=== PATIENT | male | born 1945 | race Caucasian/White ===

== ENCOUNTER 2018-06-22 21:40 | Inpatient (IN) | payer MEDICARE, SELFPAY ==
[2018-06-22] VITALS (32 sets, daily range): BP systolic 145–198; BP diastolic 72–104; PULSE 68–138; RESP 4–36; TEMP 36.5; O2SAT 93–100
--- NOTE | 2018-06-22 21:56 | W.ED.GENAD ---
Discharge Plan Disposition Patient Disposition: [facility] INPATIENT Condition: Improving Discharge Details Chief Complaint: SOB Clinical Impression: CHF (congestive heart failure), COPD (chronic obstructive pulmonary disease) Reason For Visit: COPD EXACERBATION Admit Date/Time: 06/23/18 00:45 Admit Provider: Don Ggae Attending Provider: Don Gage Primary Care Provider: [place] ED Provider: Joseph Salter Discharge Data Discharge Date/Time-TO BE ENTERED AT DEPARTURE: 06/23/18 01:52 Medical Decision Making 22:00 --patient seen immediately on arrival. Patient in critical condition on arrival. 73-year-old male with history of right-sided lung cancer status post lobectomy 5 years ago, now with recurrence recently diagnosed left lung, diabetes, hypertension, here with shortness of breath, respiratory distress improving with noninvasive positive pressure ventilation. Bilateral lower extremity edema noted with calf tenderness on the left. Patient is tachycardic, tachypneic, and hypertensive. Broad differential at this point. Consider acute pulmonary embolism. Consider acute CHF. Consider COPD exacerbation. Consider worsening tumor burden. ECG reviewed and interpreted by me: Sinus tachycardia 131 bpm, short HI with HI interval of 112, occasional PVCs, ST depressions are noted V3 to V5. Will check trop and BNP. Will transition CPAP to BIPAP. Respiratory therapy consulted. Plan to CT chest. 22:39 -- Patient reassessed: RT at bedside. Patient much improved. Trialing off bipap. Still wheezing - continue nebs. Labs reviewed: mild elevation of troponin noted. BNP mildly elevated. Creatinine nl. Will process to CT chest. -- Patient has tiny amount of dark bloody sputum in mouth - gastroccult positive. Troponin mildly elevated. Will repeat now and repeat ecg. 23:20 -- CT of the chest interpreted by radiology: No obvious pulmonary embolism. There is limited visualization of the segmental in the bases secondary to breathing motion degradation. Right lower pleural space has chronic thickening with calcification. This also has some parenchymal scar in the right base. Patient reassessed: saturating 94% on RA, off bipap. Continues to have wheeze. RT to restart bipap. -- Discussion with patient and : patient is DNR/DNI. 00:00 -- Labs review and repeat troponin at 1.5 hr trending up at 0.09. repeat ecg reviewed and interpreted by me (under wrong patient [id number]): Sinus tachycardia 123 bpm with frequent PVCs, unchanged nonspecific ST depression noted in V3, not present in V4 or V5. Suspect demand ischemia. Old ecg not available for comparison. Patient hypertensive: 164/88. Will start low dose nitroglycerin infusion. Will give prescribed dose of metoprolol which he typically takes at night. Plan to admit. Spoke with hospitalist Dr. Lee and discussed presentation, ED course, diagnostics, and current assessment. Patient to be admitted by Dr. Gage to the ICU. Care transitioned to Dr. Gage. 1:24 -- Repeat ecg reviewed and interpreted by me: Sinus tachycardia 132 bpm, PACs and PVCs present, continues to have ST depression V3-v5. Ecg reviewed with Dr. Gage who agrees with read and he was able to compare to prior remote ecg which he notes had similar depressions. HPI General Mode of arrival: EMS. Date/Time Provider Initiated Documentation: 06/22/18 21:54. Information obtained by: patient, family and EMS. HPI Narrative: 73-year-old male with history of lung cancer status post right lobectomy 5 years ago, now with recently diagnosed recurrence in the left lung, here with chief complaint of shortness of breath. History and review of systems is limited secondary to acuity of condition and noninvasive positive pressure ventilation. History obtained from EMS and who notes that patient has had recent respiratory illness over the past 1 week with intermittent wheezing that responded to albuterol neb treatments. Today around noon, he went outside and was in the cold and developed worsening shortness of breath and wheezing. He has been using his albuterol neb treatments today without relief. Symptoms progressive and more severe tonight. Also notes bilateral lower extremity swelling that is intermittent and worse recently. Patient denies associated chest pain. EMS arrived to find the patient anxious, tachypneic, tachycardic and hypoxic. CPAP was initiated and patient has significantly improved in route to [facility]. Related Data Home Medications Medication Instructions Recorded Confirmed albuterol sulfate 2 puff INHALATION Q6H PRN 06/22/18 06/22/18 allopurinol 300 mg PO DAILY 06/22/18 06/22/18 amlodipine 10 mg PO DAILY 06/22/18 06/22/18 hydrochlorothiazide 25 mg PO DAILY 06/22/18 06/23/18 losartan 100 mg PO DAILY 06/22/18 06/23/18 metformin 1,000 mg PO DAILY 06/22/18 06/22/18 metoprolol succinate 12.5 mg PO DAILY 06/22/18 06/23/18 tiotropium bromide [Spiriva with 1 cap INHALATION DAILY 06/22/18 06/22/18 HandiHaler] isosorbide mononitrate 30 mg PO DAILY 06/23/18 06/23/18 apixaban [Eliquis] 10 mg PO BID #70 tab 06/27/18 levofloxacin 750 mg PO QPM #3 tab 06/27/18 omeprazole 40 mg PO DAILY #30 cap 06/27/18 prednisone 10 mg PO DAILY #44 tab 06/27/18 tamsulosin 0.4 mg PO DAILY #30 cap 06/27/18 Previous Rx's Medication Instructions Recorded apixaban [Eliquis] 10 mg PO BID #70 tab 06/27/18 levofloxacin 750 mg PO QPM #3 tab 06/27/18 omeprazole 40 mg PO DAILY #30 cap 06/27/18 prednisone 10 mg PO DAILY #44 tab 06/27/18 tamsulosin 0.4 mg PO DAILY #30 cap 06/27/18 Allergies Allergy/AdvReac Type Severity Reaction Status Date / Time No Known Allergies Allergy Unverified 06/22/18 22:14 Review of Systems Review of Systems Unobtainable due to (limited 2/2 cpap and acuity) Cardiovascular Reports as per HPI Respiratory Reports as per HPI [facility] Medical History DVT (deep venous thrombosis) (Acute) COPD exacerbation (Acute) Type 2 diabetes mellitus (Chronic) Essential hypertension (Chronic) COPD (chronic obstructive pulmonary disease) (Chronic) Lung cancer (Chronic) Social History Smoking/Tobacco Use Status: Current every day tobacco type: e-cigarettes Surgical History S/P lobectomy of lung (Resolved) Status post ORIF of fracture of ankle (Resolved) Exam Const General: cooperative and acute distress respiratory HENMT Head: normocephalic and atraumatic Mouth: moist mucous membranes Eyes Conjunctivae: normal conjunctivae Sclera: normal sclerae EOM: EOM intact bilaterally Neck Neck: trachea midline and supple Resp Auscultation: diminished lung sounds on the right, no rales, no rhonchi and wheezes expiratory wheezes (thoughout) Cardio Jugular venous pressure: no JVD Rate: tachycardic Rhythm: regular rhythm GI Palpation: soft, not firm, no guarding, no masses, not rigid and nontender Skin General skin exam: no rashes or lesions noted Neuro General: alert, awake, oriented x3 and tone normal Extrem General: calf tenderness on the left and edema Laterality: bilateral Psych Appearance: grossly normal Mental Status: mental status grossly normal Critical Care Time Critical Care Time: Yes Total Critical Care Time: 65 Attestation: I spent greater than 65 minutes addressing this patient's immediate life threats.
[2018-06-22] MEDS: methylPREDNISolone SUCC 125 MG VIAL IVP (22:01)
[2018-06-22] MEDS: Albuterol/Ipratropium 3 ML UPD VIAL UPD (22:01)
[2018-06-22 22:05] LABS: Abs Immature Grans 0.01 k/cumm (0.0-0.09); Absolute Basophil Count 0.09 k/cumm (0.0-0.2); Absolute Eosinophil Count 0.49 k/cumm (0.0-0.7); Absolute Lymphocyte Count 2.14 k/cumm (1.2-3.4); Absolute Monocyte Count 0.86 k/cumm (0.11-0.7); Absolute Neutrophil Count 4.03 k/cumm (1.2-6.7); Basophils % 1.2; Eosinophils % 6.4; HCT 48.3 % (40.0-50.0); HGB 16.3 g/dL (13.5-17.5); Immature Grans % 0.1; Lymphocytes % 28.1; Mean Corp. HGB Concentration 33.7 g/dL (32.0-36.0); Mean Corpuscular Hemoglobin 31.8 pg (27.0-33.0); Mean Corpuscular Volume 94.2 fL (80-95); Mean Platelet Volume 11.2 fL (8.0-11.0); Monocytes % 11.3; Neutrophils % 52.9; Platelet Count 223 x1000/uL (130-400); RBC 5.13 m/cumm (4.50-6.00); RBC Distribution Width 13.1 % (11.8-14.1); White Blood Cell Count 7.62 k/cumm (4.4-10.8)
--- NOTE | 2018-06-22 22:08 | ED.GENADUL_ITS ---
Discharge Plan Disposition Patient Disposition: [facility] INPATIENT Condition: Improving Discharge Details Chief Complaint: SOB Clinical Impression: CHF (congestive heart failure), COPD (chronic obstructive pulmonary disease) Reason For Visit: COPD EXACERBATION Admit Date/Time: 06/23/18 00:45 Admit Provider: Don Gage Attending Provider: Don Gage Primary Care Provider: [place] ED Provider: Joseph Salter Discharge Data Discharge Date/Time-TO BE ENTERED AT DEPARTURE: 06/23/18 01:52 Medical Decision Making 22:00 --patient seen immediately on arrival. Patient in critical condition on arrival. 73-year-old male with history of right-sided lung cancer status post lobectomy 5 years ago, now with recurrence recently diagnosed left lung, diabetes, hypertension, here with shortness of breath, respiratory distress improving with noninvasive positive pressure ventilation. Bilateral lower extremity edema noted with calf tenderness on the left. Patient is tachycardic, tachypneic, and hypertensive. Broad differential at this point. Consider acute pulmonary embolism. Consider acute CHF. Consider COPD exacerbation. Consider worsening tumor burden. ECG reviewed and interpreted by me: Sinus tachycardia 131 bpm, short PA with PA interval of 112, occasional PVCs, ST depressions are noted V3 to V5. Will check trop and BNP. Will transition CPAP to BIPAP. Respiratory therapy consulted. Plan to CT chest. 22:39 -- Patient reassessed: RT at bedside. Patient much improved. Trialing off bipap. Still wheezing - continue nebs. Labs reviewed: mild elevation of troponin noted. BNP mildly elevated. Creatinine nl. Will process to CT chest. -- Patient has tiny amount of dark bloody sputum in mouth - gastroccult positive. Troponin mildly elevated. Will repeat now and repeat ecg. 23:20 -- CT of the chest interpreted by radiology: No obvious pulmonary embolism. There is limited visualization of the segmental in the bases secondary to breathing motion degradation. Right lower pleural space has chronic thickening with calcification. This also has some parenchymal scar in the right base. Patient reassessed: saturating 94% on RA, off bipap. Continues to have wheeze. RT to restart bipap. -- Discussion with patient and : patient is DNR/DNI. 00:00 -- Labs review and repeat troponin at 1.5 hr trending up at 0.09. repeat ecg reviewed and interpreted by me (under wrong patient [id number]): Sinus tachycardia 123 bpm with frequent PVCs, unchanged nonspecific ST depression noted in V3, not present in V4 or V5. Suspect demand ischemia. Old ecg not available for comparison. Patient hypertensive: 164/88. Will start low dose nitroglycerin infusion. Will give prescribed dose of metoprolol which he typically takes at night. Plan to admit. Spoke with hospitalist Dr. Lee and discussed presentation, ED course, diagnostics, and current assessment. Patient to be admitted by Dr. Gage to the ICU. Care transitioned to Dr. Gage. 1:24 -- Repeat ecg reviewed and interpreted by me: Sinus tachycardia 132 bpm, PACs and PVCs present, continues to have ST depression V3-v5. Ecg reviewed with Dr. Gage who agrees with read and he was able to compare to prior remote ecg which he notes had similar depressions. HPI General Mode of arrival: EMS . Date/Time Provider Initiated Documentation: 06/22/18 21:54 . Information obtained by: patient, family and EMS . HPI Narrative: 73-year-old male with history of lung cancer status post right lobectomy 5 years ago, now with recently diagnosed recurrence in the left lung, here with chief complaint of shortness of breath. History and review of systems is limited secondary to acuity of condition and noninvasive positive pressure ventilation. History obtained from EMS and who notes that patient has had recent respiratory illness over the past 1 week with intermittent wheezing that responded to albuterol neb treatments. Today around noon, he went outside and was in the cold and developed worsening shortness of breath and wheezing. He has been using his albuterol neb treatments today without relief. Symptoms progressive and more severe tonight. Also notes bilateral lower extremity swelling that is intermittent and worse recently. Patient denies associated chest pain. EMS arrived to find the patient anxious, tachypneic, tachycardic and hypoxic. CPAP was initiated and patient has significantly improved in route to [facility]. Related Data Home Medications Medication Instructions Recorded Confirmed albuterol sulfate 2 puff INHALATION Q6H PRN 06/22/18 06/22/18 allopurinol 300 mg PO DAILY 06/22/18 06/22/18 amlodipine 10 mg PO DAILY 06/22/18 06/22/18 hydrochlorothiazide 25 mg PO DAILY 06/22/18 06/23/18 losartan 100 mg PO DAILY 06/22/18 06/23/18 metformin 1,000 mg PO DAILY 06/22/18 06/22/18 metoprolol succinate 12.5 mg PO DAILY 06/22/18 06/23/18 tiotropium bromide [Spiriva with 1 cap INHALATION DAILY 06/22/18 06/22/18 HandiHaler] isosorbide mononitrate 30 mg PO DAILY 06/23/18 06/23/18 apixaban [Eliquis] 10 mg PO BID #70 tab 06/27/18 levofloxacin 750 mg PO QPM #3 tab 06/27/18 omeprazole 40 mg PO DAILY #30 cap 06/27/18 prednisone 10 mg PO DAILY #44 tab 06/27/18 tamsulosin 0.4 mg PO DAILY #30 cap 06/27/18 Previous Rx's Medication Instructions Recorded apixaban [Eliquis] 10 mg PO BID #70 tab 06/27/18 levofloxacin 750 mg PO QPM #3 tab 06/27/18 omeprazole 40 mg PO DAILY #30 cap 06/27/18 prednisone 10 mg PO DAILY #44 tab 06/27/18 tamsulosin 0.4 mg PO DAILY #30 cap 06/27/18 Allergies Allergy/AdvReac Type Severity Reaction Status Date / Time No Known Allergies Allergy Unverified 06/22/18 22:14 Review of Systems Review of Systems Unobtainable due to (limited 2/2 cpap and acuity) Cardiovascular Reports as per HPI Respiratory Reports as per HPI [facility] Medical History DVT (deep venous thrombosis) (Acute) COPD exacerbation (Acute) Type 2 diabetes mellitus (Chronic) Essential hypertension (Chronic) COPD (chronic obstructive pulmonary disease) (Chronic) Lung cancer (Chronic) Social History Smoking/Tobacco Use Status: Current every day tobacco type: e-cigarettes Surgical History S/P lobectomy of lung (Resolved) Status post ORIF of fracture of ankle (Resolved) Exam Const General: cooperative and acute distress respiratory HENMT Head: normocephalic and atraumatic Mouth: moist mucous membranes Eyes Conjunctivae: normal conjunctivae Sclera: normal sclerae EOM: EOM intact bilaterally Neck Neck: trachea midline and supple Resp Auscultation: diminished lung sounds on the right, no rales, no rhonchi and wheezes expiratory wheezes (thoughout) Cardio Jugular venous pressure: no JVD Rate: tachycardic Rhythm: regular rhythm GI Palpation: soft, not firm, no guarding, no masses, not rigid and nontender Skin General skin exam: no rashes or lesions noted Neuro General: alert, awake, oriented x3 and tone normal Extrem General: calf tenderness on the left and edema Laterality: bilateral Psych Appearance: grossly normal Mental Status: mental status grossly normal Critical Care Time Critical Care Time: Yes Total Critical Care Time: 65 Attestation: I spent greater than 65 minutes addressing this patient's immediate life threats.
[2018-06-22 22:23] LABS: ALT 34 U/L (12-78); AST 26 U/L (15-37); Albumin 3.9 g/dL (3.4-5.0); Alkaline Phosphatase 137 U/L (46-116); Anion Gap 12.6 mmol/L (3-11); BUN 9 mg/dL (7-18); Bilirubin, Total 0.4 mg/dL (0.2-1.0); CO2 28.4 mmol/L (21.0-32.0); CREATININE 1.08 mg/dL (0.70-1.30); Calcium 9.2 mg/dL (8.5-10.1); Chloride 102 mmol/L (98-107); Glucose 174 mg/dL (70-100); Magnesium 1.7 mg/dL (1.8-2.4); NT-proBNP 771 pg/mL; Potassium 3.8 mmol/L (3.5-5.1); Sodium 143 mmol/L (136-145); Total Protein 7.8 g/dL (6.4-8.2)
[2018-06-22 22:24] LABS: BE (Venous) 2.3 mmol/L (-3-3); HCO3 (Venous) 28 mmol/L (22-28); O2 Sat (Venous) 91 % (70-80); TCO2 (Venous) 24 mmol/L (22-29); pCO2 (Venous) 47 mm/Hg (34-47); pH (Venous) 7.38 (7.32-7.43); pO2 (Venous) 61 mm/Hg (28-44)
[2018-06-22 22:30] LABS: Troponin I 0.07 ng/mL (0.00-0.06)
[2018-06-22] MEDS: Albuterol/Ipratropium 3 ML UPD VIAL (22:34)
--- NOTE | 2018-06-22 22:37 | DI.CT_ITS ---
SYMPTOM/DIAGNOSIS: SHORTNESS OF BREATH, LUNG CANCER, TACHY, HEMOPTYSIS CT ANGIOGRAPHY CHEST: 06/22/18 CT angiography of the chest was performed with intravenous infusion of 100 cc Omnipaque 350. Note is made of vertebral body fusion of the thoracic spine with flowing osteophytes consistent with DISH. There is moderate motion artifact on this study which limits interpretation. No evidence of pulmonary embolic disease. No thoracic aortic dissection or aneurysm. Moderate atheromatous calcification of the aorta noted. Images obtained through the upper abdomen show grossly unremarkable appearance of visualized portions of liver, spleen, pancreas, adrenals and kidneys. No evidence of mediastinal mass or adenopathy. There is diffuse central lobular emphysema. There is peribronchial thickening particularly centrally. There are areas of apparent linear pleural and pulmonary scarring with some calcified pleural plaque in the right lung base. CONCLUSION: No evidence of pulmonary embolic disease. Right lung base partially calcified pleural/parenchymal calcification. Marked central lobular emphysema.
[2018-06-22] MEDS: Omnipaque 350 MG/ML 100 ML BTL IJ (23:02)
--- NOTE | 2018-06-22 23:14 | DI.VRAD_ITS ---
EXAM: CT Angiography Chest With Intravenous Contrast EXAM DATE/TIME: 06/22/2018 10:39 PM CLINICAL HISTORY: 73 years old, male; Signs and symptoms; Shortness of breath; Patient HX: SOB, lung CA, tachy, hemoptysis TECHNIQUE: Axial computed tomographic angiography images of the chest with intravenous contrast using CT angiography protocol. All CT scans at this facility use at least one of these dose optimization techniques: automated exposure control; mA and/or kV adjustment per patient size (includes targeted exams where dose is matched to clinical indication); or iterative reconstruction. Coronal and sagittal reformatted images were created and reviewed. MIP reconstructed images were created and reviewed. CONTRAST: 100 ml of Omnipaque 350 administered intravenously. COMPARISON: CR CHEST 2 VIEWS PA,LAT 06/26/2011 6:54 AM FINDINGS: Pulmonary arteries: Normal. No pulmonary emboli. Aorta: Normal. No aortic aneurysm. No aortic dissection. Lungs: Mild centrilobular destruction of lung parenchyma. There is some parenchymal scarring the right lung base. Pleural space: Right lower pleural space there is pleural thickening which looks chronic with calcification. Heart: Normal. No cardiomegaly. No pericardial effusion. Bones/joints: Unremarkable. No acute fracture. Soft tissues: Unremarkable. Lymph nodes: Unremarkable. No enlarged lymph nodes. Other findings: Breathing motion degradation of image quality through the lung bases. IMPRESSION: 1. No obvious pulmonary emboli. There is limited visualization of the segmental vessels in the bases secondary to breathing motion degradation. 2. Right lower pleural space has chronic thickening with calcification. This also some parenchymal scar in the right base. Dictated and Authenticated by: Pramod Stewart MD. Ordering:ALTAGRACIA IRIZARRY MD
--- NOTE | 2018-06-22 23:15 | NUR.NOTE ---
Nursing Note: Pt was reported to have spit up something black and sticky- gastrocult done and was positive. Dr. Salter aware
[2018-06-22 23:46] LABS: Troponin I 0.09 ng/mL (0.00-0.06)
[2018-06-23] VITALS (127 sets, daily range): BP systolic 118–185; BP diastolic 68–161; PULSE 65–145; RESP 4–50; TEMP 36.8–37.5; O2SAT 80–99
[2018-06-23] MEDS: Metoprolol 25 MG TAB PO (00:49)
--- NOTE | 2018-06-23 00:55 | W.PM.HP.N ---
Date of service: 06/23/18 Time of Service: 00:56 Assessment and Plan (1) COPD exacerbation: Current visit: Yes Status: Acute continue iv corticosteroids, bronchodilators; cont. BIPAP for respiratory support; obtain sputum culture given his hemoptysis (however this may reflect his CA rather than infection as he has no leukocytosis and no fever and no infiltrates on CT scan); I holding off antibiotics for now as we have no evidence for infection (2) Essential hypertension: Current visit: Yes Status: Chronic he presented w/ severe hypertension; this may be exacerbated by his acute dyspnea or may be a primary problem for his acute dyspnea causing him tachycardia and elevated troponins; patient was started on NTG drip in the ER for CHF but this has helped to bring down his BP. I will continue the NTG drip for now and resume his home bp meds (amlodipine, HCTZ, losartan) and increase his home metoprolol. He can be weaned off the NTG in the a.m. (3) Elevated troponin I level: Current visit: Yes Status: Acute no sx of CP and his non-specific diffuse ST changes appear to be old, nevertheless his troponin remains elevated although not diagnostic for SC. I will continue to trend this and continue his NTG and other bp meds. check echo in a.m. to assess LV function (4) Congestive heart failure: Current visit: Yes Status: Ruled-out he has had no hx of CHF and denies any hx fo SC. However his pedal edema has been coming on for about 1 month along with his worsening dyspnea. His BNP is modestly elevated at 700 which could also reflect PHTN. I have ordered one time dose of lasix and have left him on his iv NTG for now. Will check echo in the a.m. Continue to monitor serial troponin levels. Repeat BNP should be obtained prior to discharge once his hemodynamics have been opitimized (i.e. once his HTN is under control and he is no longer tachycardic) (5) Lung cancer: Current visit: Yes Status: Chronic I will ask nursing [facility] to find out whether or not he truly has recurrent lung CA and what their plans for treatment include (6) Type 2 diabetes mellitus: Current visit: Yes Status: Chronic hold metformin in light of CHF and recent iv contrast for CTA. use insulin sliding scale along w/ CHO coverage History of Present Illness Chief Complaint: dyspnea Narrative: 73-year-old former smoker with a history of COPD and lung cancer status post right lobectomy reportedly with a recurrence involving the left side who also has a history of essential hypertension and type 2 diabetes mellitus. He has had increased exertional dyspnea and bilateral leg edema for the past month. He has had worsening dyspnea at rest over the last 2 days along with a small amount of hemoptysis today. Denies any chest pain or fever or chills or rigors. Upon evaluation in the emergency room he was found to be tachypneic and tachycardic and hypertensive. On arrival his heart rate was 138 bpm, sinus tachycardia. Blood pressure was elevated 198/104 and his respiration rate was 28. When the EMS arrived to his home he was in respiratory distress was placed on CPAP mask. Workup in the emergency room included routine labs including CBC, CMP, serial troponin levels, proBNP, venous blood gas as well as chest CT scan to rule out PE. CBC was unremarkable. CMP demonstrated elevated glucose 174 and a low magnesium 1.7 and an elevated alkaline phosphatase of 137. Troponin level was mildly elevated at 0.07 with a follow-up level an hour and half later of 0.09. ProBNP was elevated at 771. Venous blood gas demonstrated a low PO2 of 61 with a normal PCO2 of 47. CT scan of the chest with contrast showed no obvious pulmonary emboli however there was limited visualization of the segmental vessels in the bases secondary to breathing motion artifact. Right lower lobe pleural space had chronic thickening with calcifications and parenchymal scarring in the right base. Heart showed no cardiomegaly and no pericardial effusion. There is no lymphadenopathy and no aneurysm. ECG demonstrates sinus tachycardia with frequent PACs and occasional PVC. There is nonspecific diffuse ST depression across the precordial leads similar to previous ECGs from 2011. Treatment in the emergency room included IV Solu-Medrol 125 mg along with DuoNeb aerosol treatments. His breathing is has improved and he was temporarily weaned off of BiPAP to nasal cannula but after attempting to get up to void he became very dyspneic and required resumption of his BiPAP. Patient was started on IV nitroglycerin drip by Dr. Joseph Salter to treat the patient's hypertension and CHF. Patient is now admitted to the intensive care unit for treatment of COPD exacerbation and possible CHF. Review of Systems Constitutional Denies chills, Denies fever(s) and Denies weight gain Eyes Reports system reviewed and no additional complaints, except as docu ENT Reports system reviewed and no additional complaints, except as docu Cardiovascular Denies chest pain, Reports rapid heart rate, Reports pedal edema, Reports leg edema, Reports dyspnea and Reports dyspnea on exertion Respiratory Reports cough, Reports hemoptysis, Reports dyspnea and Reports dyspnea on exertion Gastrointestinal Reports system reviewed and no additional complaints, except as docu Genitourinary Reports system reviewed and no additional complaints, except as docu Musculoskeletal Reports system reviewed and no additional complaints, except as docu Integumentary/Breasts Reports system reviewed and no additional complaints, except as docu Neurologic Reports system reviewed and no additional complaints, except as docu Psychiatric Reports system reviewed and no additional complaints, except as docu Endocrine Reports system reviewed and no additional complaints, except as docu PFSH Medical History DVT (deep venous thrombosis) (Acute) Type 2 diabetes mellitus (Chronic) Essential hypertension (Chronic) COPD (chronic obstructive pulmonary disease) (Chronic) Lung cancer (Chronic) Social History Smoking/Tobacco Use Status: Current every day tobacco type: e-cigarettes Surgical History S/P lobectomy of lung (Resolved) Status post ORIF of fracture of ankle (Resolved) Meds Home Medications Medication Instructions Recorded Confirmed Type albuterol sulfate 2 puff INHALATION Q6H PRN 06/22/18 06/22/18 History allopurinol 300 mg PO DAILY 06/22/18 06/22/18 History amlodipine 10 mg PO DAILY 06/22/18 06/22/18 History hydrochlorothiazide 25 mg PO DAILY 06/22/18 06/23/18 History losartan 100 mg PO DAILY 06/22/18 06/23/18 History metformin 1,000 mg PO DAILY 06/22/18 06/22/18 History metoprolol succinate 12.5 mg PO DAILY 06/22/18 06/23/18 History tiotropium bromide [Spiriva with 1 cap INHALATION DAILY 06/22/18 06/22/18 History HandiHaler] isosorbide mononitrate 30 mg PO DAILY 06/23/18 06/23/18 History Allergies Allergy/AdvReac Type Severity Reaction Status Date / Time No Known Allergies Allergy Unverified 06/22/18 22:14 Exam Const General: cooperative and no acute distress (Earlier in the evening the patient was in respiratory extremis requiring BiPAP) Nutritional Appearance: obese morbidly obese Orientation: alert, awake and oriented x3 HENMT Head: normal to inspection, no palpable skull fracture, normocephalic, atraumatic and no acral cyanosis General nose exam: external nose normal Face and sinus: normal facial exam Eyes General: appearance normal, both eyes and all related structures Alignment and Position: alignment normal and position normal Periorbital: periorbital findings normal Eyelids: eyelids normal Conjunctivae: conjunctivae normal Sclera: sclerae normal Cornea: corneas normal Pupils: PERRL EOM: EOM intact bilaterally Resp Effort & Inspection: able to speak in complete sentences Auscultation: crackles, rales bilaterally at the base and wheezes expiratory wheezes and scattered wheezes Cardio Jugular venous pressure: no JVD Rate: tachycardic Rhythm: regular rhythm Heart Sounds: no gallops and no murmurs Bruits: no abdominal aortic bruits and no carotid bruits Pulses: normal peripheral pulses GI Inspection: normal to inspection Back/Spine/Pelvis Back: no CVA tenderness Cervical Spine: normal cervical lordosis Thoracic/Lumbar Spine: thoracic and lumbar spine normal to inspection Skin General skin exam: no rashes or lesions noted Neuro General: alert, awake, oriented x3, moves all extremities, normal light touch, pain and propioception and no focal motor deficits Cranial Nerves: PERRL, EOM intact bilaterally, no nystagmus, facial strength normal, hearing normal, able to rotate head bilaterally and able to elevate shoulders bilaterally Cognition: normal cognition Speech: speech normal Motor: muscle tone normal throughout, strength 5/5 throughout and no movement abnormalities noted Sensory Exam: no sensory deficits noted Extrem General: normal to inspection, full ROM, normal capillary refill, no cyanosis and pedal edema bilaterally Psych Appearance: grossly normal Mental Status: mental status grossly normal Speech and Movement: speech and movement normal Mood: congruent mood Affect: normal affect Attitude: cooperative Thought Process: normal Thought Content: normal Insight: insight good Judgment: judgment good Results Imaging CT scan - chest: report reviewed (IMPRESSION: 1. No obvious pulmonary emboli. There is limited visualization of the segmental vessels in the bases secondary to breathing motion degradation. 2. Right lower pleural space has chronic thickening with calcification. This also some parenchymal scar in the right base. Dictated and Au) EKG: image reviewed (sinus tachycardia with PAC's and PVC, incomplete RBBB, diffuse non-specific ST depression (similar to prior EKG from 2010)) Labs : 06/23/18 06:15 06/25/18 07:00 Laboratory Results - last 24 hr 06/22/18 06/22/18 06/22/18 21:45 21:45 22:18 WBC 7.62 RBC 5.13 Hgb 16.3 Hct 48.3 MCV 94.2 MCH 31.8 MCHC 33.7 RDW 13.1 Plt Count 223 MPV 11.2 H Immature Gran % 0.1 Neutrophils % 52.9 Lymphocytes % 28.1 Monocytes % 11.3 Eosinophils % 6.4 Basophils % 1.2 Absolute Neutrophils 4.03 Absolute Lymphocytes 2.14 Absolute Monocytes 0.86 H Absolute Eosinophils 0.49 Absolute Basophils 0.09 VBG pH 7.38 VBG pCO2 47 VBG pO2 61 H VBG HCO3 28 VBG Total CO2 24 VBG O2 Saturation 91 H VBG Base Excess 2.3 Sodium 143 Potassium 3.8 Chloride 102 Carbon Dioxide 28.4 Anion Gap 12.6 H BUN 9 Creatinine 1.08 Estimated GFR/1.73 m2 >= 60.00 Glucose 174 H Calcium 9.2 Magnesium 1.7 L Total Bilirubin 0.4 AST 26 ALT 34 Alkaline Phosphatase 137 H Troponin I 0.07 H NT-Pro-B Natriuret Pep 771 H Total Protein 7.8 Albumin 3.9 06/22/18 23:25 WBC RBC Hgb Hct MCV MCH MCHC RDW Plt Count MPV Immature Gran % Neutrophils % Lymphocytes % Monocytes % Eosinophils % Basophils % Absolute Neutrophils Absolute Lymphocytes Absolute Monocytes Absolute Eosinophils Absolute Basophils VBG pH VBG pCO2 VBG pO2 VBG HCO3 VBG Total CO2 VBG O2 Saturation VBG Base Excess Sodium Potassium Chloride Carbon Dioxide Anion Gap BUN Creatinine Estimated GFR/1.73 m2 Glucose Calcium Magnesium Total Bilirubin AST ALT Alkaline Phosphatase Troponin I 0.09 H NT-Pro-B Natriuret Pep Total Protein Albumin Last Vital Signs Temp 36.5 C 06/22/18 21:49 Pulse 126 H 06/23/18 00:32 Resp 21 06/23/18 00:32 BP 165/95 H 06/23/18 00:32 Pulse Ox 93 L 06/23/18 00:32
[2018-06-23] MEDS: Furosemide 20 MG/2 ML VIAL IVP (02:46)
[2018-06-23] MEDS: Normal Saline Flush 10 ML SYR IVP ×3 (02:48→21:46)
[2018-06-23] MEDS: Enoxaparin 40 MG/0.4 ML SYR SC (02:48)
[2018-06-23] MEDS: methylPREDNISolone SUCC 125 MG VIAL 80 MG IVP ×3 (05:14→21:43)
[2018-06-23 07:20] LABS: Abs Immature Grans 0.01 k/cumm (0.0-0.09); Absolute Basophil Count 0.01 k/cumm (0.0-0.2); Absolute Eosinophil Count 0.01 k/cumm (0.0-0.7); Absolute Lymphocyte Count 0.48 k/cumm (1.2-3.4); Absolute Monocyte Count 0.04 k/cumm (0.11-0.7); Absolute Neutrophil Count 3.96 k/cumm (1.2-6.7); Basophils % 0.2; Eosinophils % 0.2; HCT 44.3 % (40.0-50.0); Immature Grans % 0.2; Lymphocytes % 10.6; Mean Corp. HGB Concentration 33.9 g/dL (32.0-36.0); Mean Corpuscular Hemoglobin 31.6 pg (27.0-33.0); Mean Corpuscular Volume 93.5 fL (80-95); Mean Platelet Volume 11.5 fL (8.0-11.0); Monocytes % 0.9; Neutrophils % 87.9; Platelet Count 210 x1000/uL (130-400); RBC 4.74 m/cumm (4.50-6.00); White Blood Cell Count 4.51 k/cumm (4.4-10.8)
[2018-06-23 07:28] LABS: Anion Gap 10.8 mmol/L (3-11); BUN 11 mg/dL (7-18); CO2 28.2 mmol/L (21.0-32.0); CREATININE 1.01 mg/dL (0.70-1.30); Calcium 9.2 mg/dL (8.5-10.1); Chloride 99 mmol/L (98-107); Glucose 253 mg/dL (70-100); Potassium 3.8 mmol/L (3.5-5.1); Sodium 138 mmol/L (136-145); TSH 0.62 uIU/mL (0.358-3.74)
[2018-06-23] MEDS: Albuterol/Ipratropium 3 ML UPD VIAL UPD (07:37)
--- NOTE | 2018-06-23 07:40 | PHARADMIT ---
Addendum entered by Vicky Dallas 06/25/18 14:23: Pharmacy Note Subjective still has some wheezes per morning report Objective BP-149/83 HR-107 other VS okay FSBG-266 Assessment apixaban dose increased from 5 to 10 mg BID (evidence of RLE DVT per progress note) methylprednisolone changed to prednisone Plan continue to watch VS, labs and for med changes Original Note: Admission Pharmacy Clinical Review COPD EXACERBATION Code Status DNR/DNI Current Weight Wgt- 76 kg Renally Cleared and Narrow Therapeutic Index Meds CrCl~ 59 mL/min Meds-OK QTc Value / Action Taken QTc-530 meds-OK BP Control, Fever BP- 134/83 Electrolytes reviewed Na- 138 K+3.8 Mag-1.7 DVT Prophylaxis Lovenox 40mg Opiate Usage / Scheduled Bowel Regimen Ordered No Yes Plt/SCr for Heparin / Enoxaparin Plts-21 SCr-1.01 INR for Warfarin na H/H stable, WBC/Bands H&H- 15.0/44.3 WBC- 4.51 Antibiotic appropriateness none Cultures and Sensitivities none Surgical ABX d/c within 24 hr NA DM control / Insulin Dosing BG-253 Aspart, Heart Failure (Check EF%) (ADIEL's, B-Block, Diuretics) Norvasc, HCTZ, Losartan, Toprol-XL, NTG- Drip, IV to PO Switch No Home Meds Reviewed Yes Home Meds Not Ordered Imdur, Metformin, Comments Troponin- 0.07 ^ 0.09 ^ 0.10
[2018-06-23] MEDS: Insulin Aspart 300 UNITS/3 ML PEN SC ×6 (08:32→17:56)
[2018-06-23] MEDS: Magnesium Gluconate 500 MG TAB PO ×2 (08:36→19:32)
[2018-06-23] MEDS: Metoprolol CR 25 MG TABCR 50 MG PO (08:36)
[2018-06-23] MEDS: Losartan 25 MG TAB PO (08:36)
[2018-06-23] MEDS: Allopurinol 300 MG TAB PO (08:36)
[2018-06-23] MEDS: amLODIPine 10 MG TAB PO (08:37)
--- NOTE | 2018-06-23 08:50 | DI.US_ITS ---
SYMPTOM/DIAGNOSIS: B/L LOWER EXTREMITY EDEMA, CALF PAIN DUPLEX VENOUS ULTRASOUND BOTH LOWER EXTREMITIES: 06/23/18 Duplex evaluation of the deep venous systems of both lower extremities was performed according to the usual protocol. No DVT identified on the left. In the common femoral vein on the right there is focal echogenic nonocclusive thrombus. The fairly high echogenicity would raise the possibility that this is chronic thrombus. No previous examinations available for comparison. CONCLUSION: 1. Negative left lower extremity DVT ultrasound 2. Right lower extremity DVT ultrasound shows non occlusive common femoral vein thrombus, chronic vs acute.
--- NOTE | 2018-06-23 08:50 | MERGE_ITS ---
*[facility]* *[facility]* [address] [place] [address] Date of study: 06/23/2018 Transthoracic Echocardiography M-mode, complete 2D, complete spectral Doppler, and color Doppler *STUDY CONCLUSIONS* Summary: 1. Left ventricle: The cavity size was normal. Systolic function was normal. The estimated ejection fraction was 55-60%. Mild hypokinesis of the basalinferolateral myocardium. Diastolic parameters were normal for age. There was no evidence of elevated ventricular filling pressure by Doppler parameters. 2. Mitral valve: There was mild regurgitation. 3. Right ventricle: The cavity size was normal. Wall thickness was normal. Systolic function was normal. 4. Atrial septum: No defect or patent foramen ovale was identified. 5. Pulmonary arteries: Systolic pressure could not be accurately estimated. 6. Inferior vena cava: The vessel was patent and normal in size. The respirophasic diameter changes were in the normal range (greater than or equal to 50%), consistent with normal central venous pressure. *PATIENT PRESENTATION* Height: 167.6cm ((66in) ) S/D Pressure: 153 / 22 Weight: 76.2kg ((167.6lb) ) BSA: 1.9m^2 Test start time: 08:55 AM. Test stop time: 09:30 AM. PERFORMING Unknown PERFORMING [facility] ORDERING Ismael Gage REFERRING Ismael Gage AUTOMOTIVE TECHNICIAN RT Arti (R)(CT), STEPHANIE *PROCEDURE DATA* Procedure information: The patient was identified by two identifiers. This study was interpreted by [facility]. Pertinent images and digital data are archived for permanent storage and are available for subsequent review. No prior study was available for comparison. Study status: Routine. Transthoracic echocardiography. M-mode, complete 2D, complete spectral Doppler, and color Doppler. A Transthoracic Echocardiogram was performed. Scanning was performed from the parasternal, apical, subcostal, and suprasternal notch acoustic windows. Images were obtained using an [id number] cardiac ultrasound machine. Image quality was adequate. Study completion: The patient tolerated the procedure well. History: PMH: Dyspnea. *CARDIAC ANATOMY* Left ventricle: The cavity size was normal. Systolic function was normal. The estimated ejection fraction was 55-60%. Regional wall motion abnormalities: Mild hypokinesis of the basalinferolateral myocardium. The tissue Doppler parameters were abnormal. Diastolic parameters were normal for age. There was no evidence of elevated ventricular filling pressure by Doppler parameters. Aortic valve: Doppler: There was no stenosis. There was no significant regurgitation. VTI ratio of LVOT to aortic valve: 0.83. Valve area (VTI): 2.4cm^2. Indexed valve area (VTI): 1.3cm^2/m^2. Peak velocity ratio of LVOT to aortic valve: 0.65. Valve area (Vmax): 1.9cm^2. Indexed valve area (Vmax): 1cm^2/m^2. Mean velocity ratio of LVOT to aortic valve: 0.63. Valve area (Vmean): 1.8cm^2. Indexed valve area (Vmean): 0.9cm^2/m^2. Mean gradient (S): 4.5mm Hg. Peak gradient (S): 6.9mm Hg. Aorta: Aortic root: The aortic root was normal in size. Mitral valve: Doppler: There was no evidence for stenosis. There was mild regurgitation. Left atrium: The atrium was normal in size. Atrial septum: No defect or patent foramen ovale was identified. Right ventricle: The cavity size was normal. Wall thickness was normal. Systolic function was normal. Pulmonic valve: Poorly visualized. Tricuspid valve: Doppler: There was no significant regurgitation. Pulmonary artery: Poorly visualized. Systolic pressure could not be accurately estimated. Right atrium: The atrium was normal in size. Pericardium: There was no pericardial effusion. Systemic veins: Inferior vena cava: Well visualized. The vessel was patent and normal in size. The respirophasic diameter changes were in the normal range (greater than or equal to 50%), consistent with normal central venous pressure. Measurements Left ventricle Value Reference LV ID, ED, PLAX 4.5 cm 3.5 - 6.0 LV ID, ES, PLAX 3.2 cm 2.1 - 4.0 LV end-diastolic volume, 1-p A2C 112 ml LV ejection fraction, 1-p A2C 47 % LV end-diastolic volume, 1-p A4C 68 ml LV ejection fraction, 1-p A4C 55 % LV e', lateral 0.068 m/sec LV E/e', lateral 7 LV e', medial 0.051 m/sec LV E/e', medial 10 LV e', average 0.059 m/sec LV E/e', average 8 LVOT Value Reference LVOT ID, A-P 1.9 cm LVOT area 2.9 cm^2 LVOT peak velocity, S 0.85 m/sec LVOT mean velocity, S 0.64 m/sec LVOT VTI, S 19.2 cm LVOT peak gradient, S 2.9 mm Hg LVOT mean gradient, S 1.8 mm Hg Stroke volume (SV), LVOT DP 55 ml Stroke index (SV/bsa), LVOT DP 29 ml/m^2 Aortic valve Value Reference Aortic valve peak velocity, S 1.3 m/sec Aortic valve mean velocity, S 1.02 m/sec Aortic valve VTI, S 23.0 cm Aortic mean gradient, S 4.5 mm Hg Aortic peak gradient, S 6.9 mm Hg VTI ratio, LVOT/AV 0.83 Aortic valve area, VTI 2.4 cm^2 Velocity ratio, peak, LVOT/AV 0.65 Aortic valve area, peak velocity 1.9 cm^2 Velocity ratio, mean, LVOT/AV 0.63 Aortic valve area, mean velocity 1.8 cm^2 Aortic valve area/bsa, mean velocity 0.9 cm^2/m^2 Aorta Value Reference Aortic root ID, ED 2.7 cm Left atrium Value Reference LA ID, A-P, ES 2.7 cm LA ID/bsa, A-P 1.4 cm/m^2 <=2.2 LA area, ES, A4C 17.9 cm^2 8.8 - 23.4 LA area, ES, A2C 15 cm^2 LA volume/bsa, ES, 1-p A4C 25 ml/m^2 LA volume, ES, 2-p 39 ml LA volume/bsa, ES, 2-p 21 ml/m^2 LA/aortic root ratio 1 Mitral valve Value Reference Mitral E-wave peak velocity 0.5 m/sec Mitral A-wave peak velocity 1.21 m/sec Mitral E/A ratio, peak 0.41 Right atrium Value Reference RA area, ES, A4C 13.7 cm^2 8.3 - 19.5 Legend: (L) and (H) frederick values outside specified reference range. I have personally reviewed the images and have reviewed and edited the reported findings. Electronically signed by Melvin Rdz MD 06/23/2018 13:08
--- NOTE | 2018-06-23 09:57 | PDOC.CMIN ---
- If Service Date Differs Date of service: 06/23/18 Time of Service: 09:57 Care Management Initial Assess REASON FOR HOSPITALIZATION:: COPD PAST MEDICAL HISTORY/PAST SURGICAL HISTORY:: COPD, essential hypertension, lung cancer, type 2 diabetes. Surgical history lobectomy of lung, ORIF. PREVIOUS FUNCTIONAL STATUS/SOCIAL/FAMILY SUPPORTS:: Parker lives with his spouse in [place], [place]. He states he is independent with ADL's and transportation. He is retierd and a [place]. He receives his care through the [facility]. He is not services connected however does meet with PCP, GI and pulmonogist at the [facility]. is his pulmonary provider. Parker has 3 children one lives local. He states his spouse is his primary support. CURRENT FUNCTIONAL STATUS:: Parker is currently in bed in the ICU he is currently on a bipap. He appears to have difficulty speaking full sentences. He states he does not have any equipment at home or services. He is unable to engage in conversation due to his resp status. CM contacted the CT and obtained the last visit note from , sheep killer. ADVANCE DIRECTIVES:: None on file CM confirmed with CT no advance there as well. CM will offer to complete while inpatient. Has patient been provided with information about the portal?: Yes Did the patient sign up for the portal?: No CODE STATUS:: Full Code INSURANCE COVERAGE / FINANCIAL ISSUES:: Medicare and bcbs CURRENT HOME/COMMUNITY SERVICES/EQUIPMENT:: PCP [facility], including sheep killer and GI specialist PRIMARY CARE PHYSICIAN:: PCP Dr. Rodrigues at the [facility] POTENTIAL DISCHARGE NEEDS:: Follow-up appointment scheduled with primary care at [facility] prior to discharge, scheduled appointment with sheep killer Dr. Fong PATIENT/FAMILY EDUCATION NEEDS:: Discharge education, limitations, follow-up plan of care, ask me 3 education and self-management. ANTICIPATED BARRIERS TO DISCHARGE:: None identified at this time TRANSPORTATION:: Via private car with spouse at time of discharge PLAN:: Parker is being cared for in the ICU, he will be discharged when medically cleared by provider. He will have an echocardiogram today, he is on IV steroids and and nitro for his blood pressure. He is currently receiving treatment with BiPAP and oxygen nasal cannula. CM contacted CT to obtain sheep killer notes from last visit. CM to continue to provide support, to patient, family, care team discharge planning and disposition.
[2018-06-23] MEDS: Magnesium Oxide 400 MG TAB 800 MG PO (10:09)
[2018-06-23] MEDS: Potassium Chloride 20 MEQ TABCR PO (10:09)
--- NOTE | 2018-06-23 10:30 | INITIAL_ITS ---
- If Service Date Differs Date of service: 06/23/18 Time of Service: 09:57 Care Management Initial Assess REASON FOR HOSPITALIZATION:: COPD PAST MEDICAL HISTORY/PAST SURGICAL HISTORY:: COPD, essential hypertension, lung cancer, type 2 diabetes. Surgical history lobectomy of lung, ORIF. PREVIOUS FUNCTIONAL STATUS/SOCIAL/FAMILY SUPPORTS:: Parker lives with his spouse in [place], [place]. He states he is independent with ADL's and transportation. He is retierd and a [place]. He receives his care through the [place]. He is not services connected however does meet with PCP, GI and pulmonogist at the [place]. is his pulmonary provider. Parker has 3 children one lives local. He states his spouse is his primary support. CURRENT FUNCTIONAL STATUS:: Parker is currently in bed in the ICU he is currently on a bipap. He appears to have difficulty speaking full sentences. He states he does not have any equipment at home or services. He is unable to engage in conversation due to his resp status. CM contacted the [place] and obtained the last visit note from , carpet cleaning technician. ADVANCE DIRECTIVES:: None on file CM confirmed with [place] no advance there as well. CM will offer to complete while inpatient. Has patient been provided with information about the portal?: Yes Did the patient sign up for the portal?: No CODE STATUS:: Full Code INSURANCE COVERAGE / FINANCIAL ISSUES:: Medicare and bcbs CURRENT HOME/COMMUNITY SERVICES/EQUIPMENT:: PCP [place], including carpet cleaning technician and GI specialist PRIMARY CARE PHYSICIAN:: PCP Dr. Rodrigues at the [place] POTENTIAL DISCHARGE NEEDS:: Follow-up appointment scheduled with primary care at [facility] prior to discharge, scheduled appointment with carpet cleaning technician Dr. Fong PATIENT/FAMILY EDUCATION NEEDS:: Discharge education, limitations, follow-up plan of care, ask me 3 education and self-management. ANTICIPATED BARRIERS TO DISCHARGE:: None identified at this time TRANSPORTATION:: Via private car with spouse at time of discharge PLAN:: Parker is being cared for in the ICU, he will be discharged when medically cleared by provider. He will have an echocardiogram today, he is on IV steroids and and nitro for his blood pressure. He is currently receiving treatment with BiPAP and oxygen nasal cannula. CM contacted [place] to obtain carpet cleaning technician notes from last visit. CM to continue to provide support, to patient, family, care team discharge planning and disposition.
[2018-06-23] MEDS: Albuterol 2.5 MG/3 ML INH SOLN VIAL UPD ×2 (11:16→13:58)
--- NOTE | 2018-06-23 12:16 | PGE_ITS ---
Date of Service Date of service: 06/24/18 Time of Service: 10:56 Assessment and Plan (1) COPD exacerbation: Current visit: Yes Status: Acute Ongoing for approximately 2 weeks and slowly worsening. No evidence of infectious pathology by imaging or history, and rapid influenza negative. Continue but wean IV Steroids. Continue bronchodilators. Obtain Sputum Culture in case symptoms indicate a bacterial bronchitis picture - Continue to hold on antibiotic therapy. (2) DVT (deep venous thrombosis): Current visit: Yes Status: Acute Evidence of a RLE DVT in setting of edema and calf pain - No evidence of PE by CT Scan that was somewhat limited. Initiated anticoagulation with Apixaban - Monitor symptoms closely. Of note Mr. Randle does have a history of prior malignancy with NSCLCa s/p resection in 2011. He does have a pulmonary nodule apparently under observation currently, but recurrence is not definitive. Will treat with Apixaban as above. (3) Essential hypertension: Current visit: Yes Status: Chronic Initial presentation with severe hypertension likely on the basis of respiratory distress and hypoxia. Patient was resumed on his home regimen with Nitro gtt discontinued. Blood Pressures appears vastly improved. Continue CCB, thiazide, and ARB. Patient also on BB. Doses confirmed with spouse and changed to match home regimen. (4) Elevated troponin I level: Current visit: Yes Status: Acute In setting of hypertension and hypoxia, likely reflects demand ischemia. Troponin elevation was minimal and equivocal (Peak of 0.10), downtrended with treatment of blood pressure and COPD exacerbation. ECHO checked and does indicate potential mild baslinferolateral hypokinesis, but with an intact LVEF. Will recommend stress test, potentially as an outpatient, once acute illness is over. (5) Lung cancer: Current visit: Yes Status: Chronic NSCLCa s/p right sided partial lobectomy in 2011, with discover of a new nodule on the left that has shown minimal growth over time, currently under observation with plans for repeat CT in July. Current CT Scan without mention of significant mass lesion or lymphadenopathy. Follows at the [facility]. (6) Type 2 diabetes mellitus: Current visit: Yes Status: Chronic Continue to hold metformin - Currently on sliding scale and premeal coverage. (7) DVT prophylaxis: Current visit: Yes Status: Acute On therapeutic anticoagulation with Apixaban. Subjective Interval history since last seen: 73-year-old former smoker with a history of COPD and lung cancer status post partial right sided lobectomy in the past, admitted from [facility] emergency department on 06/23 with a diagnosis of acute COPD exacerbation and mildly elevated troponin. Mr. Randle has a history of NSCLCa s/p resection, with potential recurrence on the basis of a left sided nodule currently under observation. He also has a history of DM and HTN. The patient reported onset of dyspnea over the 2 weeks prior to admission. He also stated that his Lower Extremities have become more swollen over the last month. During his evaluation in the emergency room he was found to be tachypneic and tachycardic, with a grossly elevated blood pressure. A subsequent CT Scan was obtained, and essentially ruled out both PE and infiltrate. However, he was noted to have a minimal and equivocal elevation in troponin. The patient was treated with IV Steroids and nebs, and initiated on BiPAP therapy prior to referral for admission to the hospital. He was also started on a Nitroglycerin drip to treat his hypertension and potential CHF (LE Edema). Mr. Randle improved dramatically over the first night, coming off BiPAP by the morning and reported subjectively improvement as well. By this morning he is doing very well and no longer requiring supplemental oxygen at rest. Ultrasound of his lower extremities showed a RLE DVT that was non-occlusive, and although potentially acute was noted to have fairly high echogenicity raising possibility of a chronic thrombus. His ECHO was checked and with normal LVEF, and mild hypokinesis of the basalinferolateral myocardium, with normal RV size and function - unfortunately Pulmonary Pressures could not be estimated. No other events were reported. Remains afebrile. Exam Narrative Exam Narrative: General: Patient appears comfortable, AAOX3, NAD Neck: Supple CV: Regular, nontachycardic, S1S2, No rubs, murmurs, or gallops. Pulmonary: Prior diffuse bilateral wheezing now resolved Abdomen: + Bowel Sounds, soft, nontender, nondistended Vascular: Bilateral lower extremity edema, R>L Psych: Normal mood and affect. Objective Objective Clinical Data: Abnormal lab results 06/22/18 06/22/18 06/22/18 Range/Units 21:45 21:45 22:18 MPV 11.2 H (8.0-11.0) fL Absolute Lymphocytes (1.2-3.4) k/cumm Absolute Monocytes 0.86 H (0.11-0.7) k/cumm VBG pO2 61 H (28-44) mm/Hg VBG O2 Saturation 91 H (70-80) % Anion Gap 12.6 H (3-11) mmol/L Glucose 174 H (70-100) mg/dL Magnesium 1.7 L (1.8-2.4) mg/dL Alkaline Phosphatase 137 H (46-116) U/L Troponin I 0.07 H (0.00-0.06) ng/mL NT-Pro-B Natriuret Pep 771 H ( - 299) pg/mL 06/22/18 06/23/18 06/23/18 Range/Units 23:25 01:28 06:15 MPV (8.0-11.0) fL Absolute Lymphocytes (1.2-3.4) k/cumm Absolute Monocytes (0.11-0.7) k/cumm VBG pO2 (28-44) mm/Hg VBG O2 Saturation (70-80) % Anion Gap (3-11) mmol/L Glucose 253 H (70-100) mg/dL Magnesium (1.8-2.4) mg/dL Alkaline Phosphatase (46-116) U/L Troponin I 0.09 H 0.10 H 0.10 H (0.00-0.06) ng/mL NT-Pro-B Natriuret Pep ( - 299) pg/mL 06/23/18 Range/Units 06:15 MPV 11.5 H (8.0-11.0) fL Absolute Lymphocytes 0.48 L (1.2-3.4) k/cumm Absolute Monocytes 0.04 L (0.11-0.7) k/cumm VBG pO2 (28-44) mm/Hg VBG O2 Saturation (70-80) % Anion Gap (3-11) mmol/L Glucose (70-100) mg/dL Magnesium (1.8-2.4) mg/dL Alkaline Phosphatase (46-116) U/L Troponin I (0.00-0.06) ng/mL NT-Pro-B Natriuret Pep ( - 299) pg/mL Vital Signs Temperature 37.5 C 06/23/18 07:47 Temperature Source Tympanic 06/23/18 07:47 Pulse 102 H 06/23/18 10:31 Pulse 102 H 06/23/18 10:31 Respiratory Rate 25 H 06/23/18 10:31 Respiratory Effort 06/23/18 08:44 Respiratory Depth Shallow 06/23/18 08:44 Respiratory Pattern Normal 06/23/18 08:44 Blood Pressure 132/112 H 06/23/18 10:31 Blood Pressure Mean 115 06/23/18 10:31 Blood Pressure Position Supine 06/23/18 04:00 Pulse Oximetry 97 06/23/18 10:31 Oxygen Delivery Method Bi-pap 06/23/18 07:37 Oxygen Flow Rate 0 06/23/18 04:00 Fraction of Inspired Oxygen (FIO2) 30 06/23/18 06:40 Pain Level 0 06/23/18 08:44 Intake & Output 06/22/18 06/23/18 06/23/18 23:59 11:59 23:59 Intake Total 510 / 510 Output Total 400 / 400 Balance 110 / 110 Weight 78.3 kg 76 kg Intake: Oral 510 / 510 Output: Urine 400 / 400 Other: Urine Color Yellow Urine Appearance Clear Urine Odor Strong Comment Plus moderate amt spilled in bed Voiding Methods Urinal Laboratory Results WBC 4.51 k/cumm (4.4-10.8) D 06/23/18 06:15 RBC 4.74 m/cumm (4.50-6.00) 06/23/18 06:15 Hgb 15.0 g/dL (13.5-17.5) 06/23/18 06:15 Hct 44.3 % (40.0-50.0) 06/23/18 06:15 MCV 93.5 fL (80-95) 06/23/18 06:15 MCH 31.6 pg (27.0-33.0) 06/23/18 06:15 MCHC 33.9 g/dL (32.0-36.0) 06/23/18 06:15 RDW 13.0 % (11.8-14.1) 06/23/18 06:15 Plt Count 210 x1000/uL (130-400) 06/23/18 06:15 MPV 11.5 fL (8.0-11.0) H 06/23/18 06:15 Immature Gran % 0.2 06/23/18 06:15 Neutrophils % 87.9 06/23/18 06:15 Lymphocytes % 10.6 06/23/18 06:15 Monocytes % 0.9 06/23/18 06:15 Eosinophils % 0.2 06/23/18 06:15 Basophils % 0.2 06/23/18 06:15 Absolute Neutrophils 3.96 k/cumm (1.2-6.7) 06/23/18 06:15 Absolute Lymphocytes 0.48 k/cumm (1.2-3.4) L 06/23/18 06:15 Absolute Monocytes 0.04 k/cumm (0.11-0.7) L 06/23/18 06:15 Absolute Eosinophils 0.01 k/cumm (0.0-0.7) 06/23/18 06:15 Absolute Basophils 0.01 k/cumm (0.0-0.2) 06/23/18 06:15 VBG pH 7.38 (7.32-7.43) 06/22/18 22:18 VBG pCO2 47 mm/Hg (34-47) 06/22/18 22:18 VBG pO2 61 mm/Hg (28-44) H 06/22/18 22:18 VBG HCO3 28 mmol/L (22-28) 06/22/18 22:18 VBG Total CO2 24 mmol/L (22-29) 06/22/18 22:18 VBG O2 Saturation 91 % (70-80) H 06/22/18 22:18 VBG Base Excess 2.3 mmol/L (-3-3) 06/22/18 22:18 Sodium 138 mmol/L (136-145) 06/23/18 06:15 Potassium 3.8 mmol/L (3.5-5.1) 06/23/18 06:15 Chloride 99 mmol/L (98-107) 06/23/18 06:15 Carbon Dioxide 28.2 mmol/L (21.0-32.0) 06/23/18 06:15 Anion Gap 10.8 mmol/L (3-11) 06/23/18 06:15 BUN 11 mg/dL (7-18) 06/23/18 06:15 Creatinine 1.01 mg/dL (0.70-1.30) 06/23/18 06:15 Estimated GFR/1.73 m2 >= 60.00 (mL/min/1.73m2) 06/23/18 06:15 Glucose 253 mg/dL (70-100) H 06/23/18 06:15 Calcium 9.2 mg/dL (8.5-10.1) 06/23/18 06:15 Magnesium 1.7 mg/dL (1.8-2.4) L 06/22/18 21:45 Total Bilirubin 0.4 mg/dL (0.2-1.0) 06/22/18 21:45 AST 26 U/L (15-37) 06/22/18 21:45 ALT 34 U/L (12-78) 06/22/18 21:45 Alkaline Phosphatase 137 U/L (46-116) H 06/22/18 21:45 Troponin I 0.10 ng/mL (0.00-0.06) H 06/23/18 06:15 NT-Pro-B Natriuret Pep 771 pg/mL (-299) H 06/22/18 21:45 Total Protein 7.8 g/dL (6.4-8.2) 06/22/18 21:45 Albumin 3.9 g/dL (3.4-5.0) 06/22/18 21:45 TSH 0.62 uIU/mL (0.358-3.74) 06/23/18 06:15 Objective Narrative Objective Narrative: Exam(s) a US:US Lower Extremities SYMPTOM/DIAGNOSIS: B/L LOWER EXTREMITY EDEMA, CALF PAIN DUPLEX VENOUS ULTRASOUND BOTH LOWER EXTREMITIES: 06/23/18 Duplex evaluation of the deep venous systems of both lower extremities was performed according to the usual protocol. No DVT identified on the left. In the common femoral vein on the right there is focal echogenic nonocclusive thrombus. The fairly high echogenicity would raise the possibility that this is chronic thrombus. No previous examinations available for comparison. CONCLUSION: 1. Negative left lower extremity DVT ultrasound 2. Right lower extremity DVT ultrasound shows non occlusive common femoral vein thrombus, chronic vs acute. Exam(s) a US:US echocardiogram *[facility]* *[facility]* [address] [place] [address] Date of study: 06/23/2018 Transthoracic Echocardiography M-mode, complete 2D, complete spectral Doppler, and color Doppler *STUDY CONCLUSIONS* Summary: 1. Left ventricle: The cavity size was normal. Systolic function was normal. The estimated ejection fraction was 55-60%. Mild hypokinesis of the basalinferolateral myocardium. Diastolic parameters were normal for age. There was no evidence of elevated ventricular filling pressure by Doppler parameters. 2. Mitral valve: There was mild regurgitation. 3. Right ventricle: The cavity size was normal. Wall thickness was normal. Systolic function was normal. 4. Atrial septum: No defect or patent foramen ovale was identified. 5. Pulmonary arteries: Systolic pressure could not be accurately estimated. 6. Inferior vena cava: The vessel was patent and normal in size. The respirophasic diameter changes were in the normal range (greater than or equal to 50%), consistent with normal central venous pressure. Exam(s) EXAM: CT Angiography Chest With Intravenous Contrast EXAM DATE/TIME: 06/22/2018 10:39 PM CLINICAL HISTORY: 73 years old, male; Signs and symptoms; Shortness of breath; Patient HX: SOB, lung CA, tachy, hemoptysis COMPARISON: CR CHEST 2 VIEWS PA,LAT 06/26/2011 6:54 AM FINDINGS: Pulmonary arteries: Normal. No pulmonary emboli. Aorta: Normal. No aortic aneurysm. No aortic dissection. Lungs: Mild centrilobular destruction of lung parenchyma. There is some parenchymal scarring the right lung base. Pleural space: Right lower pleural space there is pleural thickening which looks chronic with calcification. Heart: Normal. No cardiomegaly. No pericardial effusion. Bones/joints: Unremarkable. No acute fracture. Soft tissues: Unremarkable. Lymph nodes: Unremarkable. No enlarged lymph nodes. Other findings: Breathing motion degradation of image quality through the lung bases. IMPRESSION: 1. No obvious pulmonary emboli. There is limited visualization of the segmental vessels in the bases secondary to breathing motion degradation. 2. Right lower pleural space has chronic thickening with calcification. This also some parenchymal scar in the right base.
[2018-06-23 14:31] LABS: Troponin I 0.08 ng/mL (0.00-0.06)
[2018-06-23] MEDS: Metoprolol 12.5 MG TAB PO (14:44)
--- NOTE | 2018-06-23 15:00 | CHAPLAIN ---
Parker was sleeping when I visited. I spoke with his , explained my role and offered support.
--- NOTE | 2018-06-23 16:41 | DM INPTCON_ITS ---
DESCRIPTION/ASSESSMENT: Appreciate diabetes consult for Mr. Randle who is hospitalized with COPD. He is being treated with 80mg Methylprednisolone. Last A1c in this system 6.5 in 2010. Blood sugars are elevated at 186-253 taking mealtime insulin at 1 unit covers 10grams carbohydrate plus sensitive insulin correction. Attempted to visit twice this PM without success. INTERVENTION: His correction did work today, however it did not bring him to the glycemic target. He may benefit from an increase in insulin correction to the moderate level. Will follow for elevated fasting blood sugar given he has no insulin on board for his night steroid administration. PLAN: Will follow blood sugars and attempt to visit again.
[2018-06-23] MEDS: Apixaban 5 MG TAB PO (19:32)
[2018-06-24] VITALS (38 sets, daily range): BP systolic 97–155; BP diastolic 49–91; PULSE 75–104; RESP 4–25; TEMP 36.6–37; O2SAT 88–99
[2018-06-24] MEDS: Metoprolol 12.5 MG TAB PO ×2 (01:35→13:43)
[2018-06-24] MEDS: Albuterol/Ipratropium 3 ML UPD VIAL UPD (03:42)
[2018-06-24] MEDS: methylPREDNISolone SUCC 125 MG VIAL 80 MG IVP (06:01)
[2018-06-24 07:40] LABS: Anion Gap 9.4 mmol/L (3-11); BUN 20 mg/dL (7-18); CO2 27.6 mmol/L (21.0-32.0); Calcium 8.8 mg/dL (8.5-10.1); Chloride 100 mmol/L (98-107); Estimated GFR 59.51 (mL/min/1.73m2); Glucose 267 mg/dL (70-100); Magnesium 1.8 mg/dL (1.8-2.4); Potassium 4.1 mmol/L (3.5-5.1); Sodium 137 mmol/L (136-145)
[2018-06-24] MEDS: Losartan 50 MG TAB 100 MG PO (08:09)
[2018-06-24] MEDS: Magnesium Gluconate 500 MG TAB PO ×2 (08:10→19:42)
[2018-06-24] MEDS: Allopurinol 300 MG TAB PO (08:10)
[2018-06-24] MEDS: amLODIPine 10 MG TAB PO (08:11)
[2018-06-24] MEDS: Apixaban 5 MG TAB PO ×2 (08:11→19:42)
[2018-06-24] MEDS: Pantoprazole 40 MG VIAL IVP (08:12)
[2018-06-24] MEDS: Isosorbide Mononitrate 30 MG TABCR PO (08:12)
[2018-06-24] MEDS: Insulin Aspart 300 UNITS/3 ML PEN SC ×6 (08:15→17:01)
--- NOTE | 2018-06-24 09:20 | PDOC.CMPRO ---
- If Service Date Differs Date of service: 06/24/18 Time of Service: 09:20 Care Management Progress Note S/O: CM met with the Parker at the bedside he feels better today he is without oxygen at this time. He has been placed on Eliquis he receives his medications through [place] and this is not a formulary drug. CM can provide a 30 day free card however this would only be temporary. CM notified MD. He will need to follow up with primary care in the few weeks to have medication prior auth before the thirty days. He was able to complete his advance directives at the bedside. CM faxed to access and provided copies to the family and registry. [facility] A;Parker is a 73 year old male admitted with COPD, DVT P:Parker will return home when medically ready per provider. Anticipate no additional services at time of discharge. His spouse will transport him. CM to obtain a prescription for Eliquis prior to discharge and send it to local pharmacy of choice with the 30 day free coupon.
--- NOTE | 2018-06-24 09:28 | CMPROGNOTE_ITS ---
- If Service Date Differs Date of service: 06/24/18 Time of Service: 09:20 Care Management Progress Note S/O: CM met with the Parker at the bedside he feels better today he is without oxygen at this time. He has been placed on Eliquis he receives his medications through [place] and this is not a formulary drug. CM can provide a 30 day free card however this would only be temporary. CM notified MD. He will need to follow up with primary care in the few weeks to have medication prior auth before the thirty days. He was able to complete his advance directives at the bedside. CM faxed to access and provided copies to the family and registry. [facility]. A;Parker is a 73 year old male admitted with COPD, DVT P:Parker will return home when medically ready per provider. Anticipate no additional services at time of discharge. His spouse will transport him. CM to obtain a prescription for Eliquis prior to discharge and send it to local pharmacy of choice with the 30 day free coupon.
[2018-06-24] MEDS: Magnesium Oxide 400 MG TAB PO (09:45)
[2018-06-24] MEDS: Tamsulosin 0.4 MG CAPCR PO (09:45)
[2018-06-24] MEDS: Hydrochlorothiazide 25 MG TAB PO (09:45)
[2018-06-24] MEDS: Normal Saline Flush 10 ML SYR IVP ×2 (09:46→17:28)
[2018-06-24] MEDS: Normal Saline 1,000 ML 75 ML IV (10:00)
[2018-06-24] MEDS: Albuterol 2.5 MG/3 ML INH SOLN VIAL UPD (13:30)
--- NOTE | 2018-06-24 13:39 | PT.INIE ---
Date of service: 06/24/18 Time of Service: 13:27 PT Notes Inpatient Physical Therapy Evaluation Date: 06/24/18 Referring Doctor: King Pineda PT Orders: PT CONSULT: pt needs Precautions: Fall precautions, Monitor 02 sats with activity Patient Profile/Admitting Diagnosis: Pt is a 73yr old male admitted with chronic obstructive pulmonary disease exacerbation and right lower extremity deep vein thrombosis PMHX: exertional dyspnea, lung cancer s/p right lobectomy, history of tobacco abuse, congestive heart failure, bilateral pedal edema, open reduction internal fixation of ankle, hypertension Social History/Home Situation: Lives with in a house, 4 steps with railing to enter, can stay on one level inside. Baseline mobility independent gait with cane, independent with ADLs Equipment Owned/DME: walking stick Subjective: Pt lying in bed watching TV with , agreeable to PT Consult. Objective: General Observation: IV R UE, telemetry, 02 monitor Mental Status: A& O x3 Pain: no c/o pain Vital Signs: pt on room air, 02 sats 96% at rest, 88-94% with activity Bed Mobility/Transfers: Supine-sit: HOB 35 degrees, supervision with use of bed rail Sit-stand: SBA with FWW Stand-sit: supervision Sit-supine: HOB flat, supervision Gait: SBA with FWW 50ftx2, slow step through gait pattern, pt with exertional dyspnea with any movement. On room air, 02 sats 96% at rest, 88-94% with activity. Pt returned to bed after gait session completed. Balance: Static Sitting: normal Dynamic Sitting: normal Static Standing: fair Dynamic Standing: fair Special Tests: Mobility Limitations Standardized Measure [facility] AM-PAC 6 clicks Basic Mobility Inpatient Short Form: Raw Score: 18 Standardized Score: 43.63 CMS Score: 46.58% CMS Modifier: CK Informed Consent/Education: Patient instructed in purpose of PT consult and plan of care. Assessment: Pt is a 73yr old male admitted with chronic obstructive pulmonary disease exacerbation and right lower extremity deep vein thrombosis in setting of exertional dyspnea, lung cancer s/p right lobectomy, history of tobacco abuse, congestive heart failure, bilateral pedal edema. Patient presents with clinical signs and symptoms consistent with COPD, as demonstrated by the following impairment level findings: dyspena on exertion, weakness with functional mobility, decreased strength with gait requiring FWW for energy conservation and instruction in breathing and pacing of activities. Pt is not interested in using a walker at home, prefers to use his walking stick. Will benefit from skilled PT intervention in hospital setting to progress strength and mobility with goal to discharge to home when medically cleared. Impairments are contributing to the following functional limitations: AMPAC score CMS Score: 46.58% Patient is assessed as a Moderate 84298 complexity based on the following: History: see above Examination: see above Presentation: evolving Decision Making: AMPAC score CMS Score: 46.58% Goals: Goals X1 week 1. Supine-Sit : independent 2. Sit-Supine : independent 3. Sit-Stand : independent 4. Stand-Sit : independent 5. Bed-Chair : supervision 6. Chair-Bed : supervision 7. Gait : supervision with no device 75ft 8. Stairs : up/down 4 steps with railing SBA Plan of Care/Treatment Plan: 1-2x/day, 7 days/week x 1 week. Plan of care has been reviewed with the INVESTIGATOR CLAIMS providing the service under Physical Therapy direction. Initiate Physical Therapy intervention for strengthening, bed mobility, transfers, gait, stairs, balance training, use of assistive device. DISCHARGE RECOMMENDATIONS: Home TREATMENT CODE/TIME: 24 IE 1327 G Codes in the area mobility of walking and moving around: current status [id number] CK; projected status GP [id number]. Discharge status (if discharging) GP [id number] CK based on AMPAC score CMS Score: 46.58% Gayle Hough PT
--- NOTE | 2018-06-24 13:52 | IN_ITS ---
Date of service: 06/24/18 Time of Service: 13:27 PT Notes Inpatient Physical Therapy Evaluation Date: 06/24/18 Referring Doctor: King Pineda PT Orders: PT CONSULT: pt needs Precautions: Fall precautions, Monitor 02 sats with activity Patient Profile/Admitting Diagnosis: Pt is a 73yr old male admitted with chronic obstructive pulmonary disease exacerbation and right lower extremity deep vein thrombosis PMHX: exertional dyspnea, lung cancer s/p right lobectomy, history of tobacco abuse, congestive heart failure, bilateral pedal edema, open reduction internal fixation of ankle, hypertension Social History/Home Situation: Lives with in a house, 4 steps with railing to enter, can stay on one level inside. Baseline mobility independent gait with cane, independent with ADLs Equipment Owned/DME: walking stick Subjective: Pt lying in bed watching TV with , agreeable to PT Consult. Objective: General Observation: IV R UE, telemetry, 02 monitor Mental Status: A& O x3 Pain: no c/o pain Vital Signs: pt on room air, 02 sats 96% at rest, 88-94% with activity Bed Mobility/Transfers: Supine-sit: HOB 35 degrees, supervision with use of bed rail Sit-stand: SBA with FWW Stand-sit: supervision Sit-supine: HOB flat, supervision Gait: SBA with FWW 50ftx2, slow step through gait pattern, pt with exertional dyspnea with any movement. On room air, 02 sats 96% at rest, 88-94% with activity. Pt returned to bed after gait session completed. Balance: Static Sitting: normal Dynamic Sitting: normal Static Standing: fair Dynamic Standing: fair Special Tests: Mobility Limitations Standardized Measure [facility] AM-PAC 6 clicks Basic Mobility Inpatient Short Form: Raw Score: 18 Standardized Score: 43.63 CMS Score: 46.58% CMS Modifier: CK Informed Consent/Education: Patient instructed in purpose of PT consult and plan of care. Assessment: Pt is a 73yr old male admitted with chronic obstructive pulmonary disease exacerbation and right lower extremity deep vein thrombosis in setting of exertional dyspnea, lung cancer s/p right lobectomy, history of tobacco abuse , congestive heart failure, bilateral pedal edema. Patient presents with clinical signs and symptoms consistent with COPD, as demonstrated by the following impairment level findings: dyspena on exertion, weakness with functional mobility, decreased strength with gait requiring FWW for energy conservation and instruction in breathing and pacing of activities. Pt is not interested in using a walker at home, prefers to use his walking stick. Will benefit from skilled PT intervention in hospital setting to progress strength and mobility with goal to discharge to home when medically cleared. Impairments are contributing to the following functional limitations: AMPAC score CMS Score: 46.58% Patient is assessed as a Moderate 74944 complexity based on the following: History: see above Examination: see above Presentation: evolving Decision Making: AMPAC score CMS Score: 46.58% Goals: Goals X1 week 1. Supine-Sit : independent 2. Sit-Supine : independent 3. Sit-Stand : independent 4. Stand-Sit : independent 5. Bed-Chair : supervision 6. Chair-Bed : supervision 7. Gait : supervision with no device 75ft 8. Stairs : up/down 4 steps with railing SBA Plan of Care/Treatment Plan: 1-2x/day, 7 days/week x 1 week. Plan of care has been reviewed with the POLICE RESERVES COMMANDER providing the service under Physical Therapy direction. Initiate Physical Therapy intervention for strengthening, bed mobility, transfers, gait, stairs, balance training, use of assistive device. DISCHARGE RECOMMENDATIONS: Home TREATMENT CODE/TIME: 24 IE 1327 G Codes in the area mobility of walking and moving around: current status [id number] CK; projected status GP [id number]. Discharge status (if discharging) GP G8980 CK based on AMPAC score CMS Score: 46.58% Gayle Hough PT
[2018-06-24] MEDS: methylPREDNISolone SUCC 40 MG VIAL IVP (17:27)
[2018-06-25] VITALS (18 sets, daily range): BP systolic 110–174; BP diastolic 68–99; PULSE 60–107; RESP 4–30; TEMP 36.3–36.9; O2SAT 92–96
[2018-06-25] MEDS: Metoprolol 12.5 MG TAB PO ×2 (01:09→13:40)
[2018-06-25] MEDS: methylPREDNISolone SUCC 40 MG VIAL IVP (06:23)
--- NOTE | 2018-06-25 07:14 | PDOC.CMPRO ---
Care Management Progress Note S/O: CM reviewed discharge considerations with Parker. Parker reported he fills prescriptions at [facility] in [place], [place]. CM will fax prescription to [facility]: P#[phone], F#[phone] as well as prescription card adn [email or web address] prescription card. Parker verbalized understanding of plan at this time. A: Parker is a 73 year old male admitted to [facility] 06/23/18 with COPD, DVT P: Parker will return home when medically ready per provider. No additional services anticipated at time of discharge. He will transport via private vehicle with his , Ludy. CM to obtain a prescription for Eliquis prior to discharge and send it to local pharmacy of choice with the 30 day free coupon; Parker will need to follow up with primary care in the few weeks to have medication prior authorization before the thirty days. .
[2018-06-25 07:32] LABS: Anion Gap 7.2 mmol/L (3-11); BUN 25 mg/dL (7-18); CO2 28.8 mmol/L (21.0-32.0); CREATININE 1.16 mg/dL (0.70-1.30); Calcium 8.5 mg/dL (8.5-10.1); Chloride 101 mmol/L (98-107); Glucose 264 mg/dL (70-100); Magnesium 2.1 mg/dL (1.8-2.4); Potassium 4.1 mmol/L (3.5-5.1); Sodium 137 mmol/L (136-145)
--- NOTE | 2018-06-25 07:48 | CMPROGNOTE_ITS ---
Care Management Progress Note S/O: CM reviewed discharge considerations with Parker. Parker reported he fills prescriptions at [facility] in [place], [place]. CM will fax prescription to [facility]: P#[phone], F#[phone] as well as prescription card adn [email or web address] prescription card. Parker verbalized understanding of plan at this time. A: Parker is a 73 year old male admitted to [facility] 06/23/18 with COPD, DVT P: Parker will return home when medically ready per provider. No additional services anticipated at time of discharge. He will transport via private vehicle with his , Ludy. CM to obtain a prescription for Eliquis prior to discharge and send it to local pharmacy of choice with the 30 day free coupon ; Parker will need to follow up with primary care in the few weeks to have medication prior authorization before the thirty days. .
[2018-06-25] MEDS: Insulin Aspart 300 UNITS/3 ML PEN SC ×6 (08:42→17:02)
[2018-06-25] MEDS: Normal Saline Flush 10 ML SYR IVP (08:45)
[2018-06-25] MEDS: Pantoprazole 40 MG VIAL IVP (08:45)
[2018-06-25] MEDS: Isosorbide Mononitrate 30 MG TABCR PO (08:45)
[2018-06-25] MEDS: Allopurinol 300 MG TAB PO (08:45)
[2018-06-25] MEDS: Magnesium Gluconate 500 MG TAB PO ×2 (08:46→19:57)
[2018-06-25] MEDS: Apixaban 5 MG TAB PO (08:46)
[2018-06-25] MEDS: Losartan 50 MG TAB 100 MG PO (08:46)
[2018-06-25] MEDS: amLODIPine 10 MG TAB PO (08:46)
[2018-06-25] MEDS: Tamsulosin 0.4 MG CAPCR PO (08:46)
[2018-06-25] MEDS: Hydrochlorothiazide 25 MG TAB PO (10:30)
--- NOTE | 2018-06-25 11:56 | PT.INTREAT ---
Date of service: 06/25/18 Time of Service: 11:56 PT Notes Inpatient Physical Therapy Treatment Note Date: 06/25/18 PRECAUTIONS:Fall precautions SUBJECTIVE: OBJECTIVE: [] Sit-stand: SBA Stand-sit: SBA GAIT Assistive Device: FWW Weight bearing: Full Assist: SBA Distance: 60ft Deviation: [] VITALS: oxygen was 92%-94% THEREX: Pt completed UE and LE ther ex as per flow sheet while in the seated position. STAIRS:[] ASSESSMENT: Pt tolerated today's session fairly well. Pt did require rest due to some minor SOB and fatigue but over all motivated for PT. PLAN: Cont to progress as per too as per PT POC. TREATMENT CODE/TIME: 9:35-9:55 (20) TA
--- NOTE | 2018-06-25 13:34 | PGE_ITS ---
Date of Service Date of service: 06/25/18 Time of Service: 13:29 Assessment and Plan (1) COPD exacerbation: Current visit: Yes Status: Acute Ongoing for approximately 2 weeks and slowly worsening. No evidence of infectious pathology by imaging or history, and rapid influenza negative. Continue but wean IV Steroids. Continue bronchodilators. Obtain Sputum Culture in case symptoms indicate a bacterial bronchitis picture - Continue to hold on antibiotic therapy. Rapid Influenza checked and negative. (2) DVT (deep venous thrombosis): Current visit: Yes Status: Acute Evidence of a RLE DVT in setting of edema and calf pain - No evidence of PE by CT Scan that was somewhat limited. Initiated anticoagulation with Apixaban - Monitor symptoms closely. Of note Mr. Randle does have a history of prior malignancy with NSCLCa s/p resection in 2011. He does have a pulmonary nodule apparently under observation currently, but recurrence is not definitive. Will treat with Apixaban as above. (3) Essential hypertension: Current visit: Yes Status: Chronic Initial presentation with severe hypertension likely on the basis of respiratory distress and hypoxia. Patient was resumed on his home regimen with Nitro gtt discontinued. Blood Pressures appears vastly improved. Continue CCB, thiazide, and ARB. Patient also on BB. Doses confirmed with spouse and changed to match home regimen. (4) Elevated troponin I level: Current visit: Yes Status: Acute In setting of hypertension and hypoxia, likely reflects demand ischemia. Troponin elevation was minimal and equivocal (Peak of 0.10), downtrended with treatment of blood pressure and COPD exacerbation. ECHO checked and does indicate potential mild baslinferolateral hypokinesis, but with an intact LVEF. Will recommend stress test, potentially as an outpatient, once acute illness is over. (5) Lung cancer: Current visit: Yes Status: Chronic NSCLCa s/p right sided partial lobectomy in 2011, with discover of a new nodule on the left that has shown minimal growth over time, currently under observation with plans for repeat CT in July. Current CT Scan without mention of significant mass lesion or lymphadenopathy. Follows at the [facility]. (6) Type 2 diabetes mellitus: Current visit: Yes Status: Chronic Continue to hold metformin - Currently on sliding scale (7) DVT prophylaxis: Current visit: Yes Status: Acute On therapeutic anticoagulation with Apixaban. Subjective Interval history since last seen: 73-year-old former smoker with a history of COPD and lung cancer status post partial right sided lobectomy in the past, admitted from [facility] emergency department on 06/23 with a diagnosis of acute COPD exacerbation and mildly elevated troponin. Mr. Randle has a history of NSCLCa s/p resection, with potential recurrence on the basis of a left sided nodule currently under observation. He also has a history of DM and HTN. The patient reported onset of dyspnea over the 2 weeks prior to admission. He also stated that his Lower Extremities have become more swollen over the last month. During his evaluation in the emergency room he was found to be tachypneic and tachycardic, with a grossly elevated blood pressure. A subsequent CT Scan was obtained, and essentially ruled out both PE and infiltrate. However, he was noted to have a minimal and equivocal elevation in troponin. The patient was treated with IV Steroids and nebs, and initiated on BiPAP therapy prior to referral for admission to the hospital. He was also started on a Nitroglycerin drip to treat his hypertension and potential CHF (LE Edema). Mr. Randle improved dramatically over the first night, coming off BiPAP by the morning and reported subjectively improvement as well. By yesterday morning he was doing very well and no longer requiring supplemental oxygen at rest. He is now comfortable appearing and nearing his baseline. Initial Ultrasound of his lower extremities obtained in the setting of LE Edema showed a RLE DVT that was non-occlusive, and although potentially acute was noted to have fairly high echogenicity raising the possibility of a chronic thrombus. His ECHO was checked and with normal LVEF, and mild hypokinesis of the basalinferolateral myocardium, with normal RV size and function - unfortunately Pulmonary Pressures could not be estimated. No other events were reported overnight. He continues to remain afebrile. Exam Narrative Exam Narrative: General: Patient appears comfortable, AAOX3, NAD Neck: Supple CV: Regular, nontachycardic, S1S2, No rubs, murmurs, or gallops. Pulmonary: Prior diffuse bilateral wheezing now resolved Abdomen: + Bowel Sounds, soft, nontender, nondistended Vascular: Bilateral lower extremity edema, R>L Psych: Normal mood and affect. Objective Objective Clinical Data: Abnormal lab results 06/25/18 Range/Units 07:00 BUN 25 H (7-18) mg/dL Glucose 264 H (70-100) mg/dL Vital Signs Temperature 36.7 C 06/25/18 12:45 Temperature Source Temporal Artery Scan 06/25/18 12:45 Pulse 85 06/25/18 08:27 Pulse 74 06/25/18 10:00 Respiratory Rate 15 06/25/18 10:00 Respiratory Effort 06/25/18 12:45 Respiratory Depth Shallow 06/25/18 12:45 Respiratory Pattern Normal 06/25/18 12:45 Blood Pressure 174/72 H 06/25/18 08:27 Blood Pressure Mean 89 06/25/18 08:27 Blood Pressure Position Supine 06/24/18 00:05 Pulse Oximetry 92 L 06/25/18 07:15 Oxygen Delivery Method Room Air 06/25/18 12:45 Oxygen Flow Rate 0 06/25/18 12:45 Fraction of Inspired Oxygen (FIO2) 25 06/24/18 06:00 Pain Level 0 06/25/18 12:45 Intake & Output 06/24/18 06/25/18 06/25/18 23:59 11:59 23:59 Intake Total 650 / 650 1365 / 1365 736 / 736 Output Total 250 / 250 3250 / 3250 Balance 400 / 400 -1885 / -1885 736 / 736 Weight 76.3 kg Intake: IV 30 / 30 Oral 650 / 650 1335 / 1335 736 / 736 Output: Urine 250 / 250 3250 / 3250 Other: Urine Color Light Omnalisa Light Monalisa Urine Appearance Clear Clear Comment Arias in place Arias in place Arias removed at 1030. Pt has not voided since Laboratory Results WBC 4.51 k/cumm (4.4-10.8) D 06/23/18 06:15 RBC 4.74 m/cumm (4.50-6.00) 06/23/18 06:15 Hgb 15.0 g/dL (13.5-17.5) 06/23/18 06:15 Hct 44.3 % (40.0-50.0) 06/23/18 06:15 MCV 93.5 fL (80-95) 06/23/18 06:15 MCH 31.6 pg (27.0-33.0) 06/23/18 06:15 MCHC 33.9 g/dL (32.0-36.0) 06/23/18 06:15 RDW 13.0 % (11.8-14.1) 06/23/18 06:15 Plt Count 210 x1000/uL (130-400) 06/23/18 06:15 MPV 11.5 fL (8.0-11.0) H 06/23/18 06:15 Immature Gran % 0.2 06/23/18 06:15 Neutrophils % 87.9 06/23/18 06:15 Lymphocytes % 10.6 06/23/18 06:15 Monocytes % 0.9 06/23/18 06:15 Eosinophils % 0.2 06/23/18 06:15 Basophils % 0.2 06/23/18 06:15 Absolute Neutrophils 3.96 k/cumm (1.2-6.7) 06/23/18 06:15 Absolute Lymphocytes 0.48 k/cumm (1.2-3.4) L 06/23/18 06:15 Absolute Monocytes 0.04 k/cumm (0.11-0.7) L 06/23/18 06:15 Absolute Eosinophils 0.01 k/cumm (0.0-0.7) 06/23/18 06:15 Absolute Basophils 0.01 k/cumm (0.0-0.2) 06/23/18 06:15 VBG pH 7.38 (7.32-7.43) 06/22/18 22:18 VBG pCO2 47 mm/Hg (34-47) 06/22/18 22:18 VBG pO2 61 mm/Hg (28-44) H 06/22/18 22:18 VBG HCO3 28 mmol/L (22-28) 06/22/18 22:18 VBG Total CO2 24 mmol/L (22-29) 06/22/18 22:18 VBG O2 Saturation 91 % (70-80) H 06/22/18 22:18 VBG Base Excess 2.3 mmol/L (-3-3) 06/22/18 22:18 Sodium 137 mmol/L (136-145) 06/25/18 07:00 Potassium 4.1 mmol/L (3.5-5.1) 06/25/18 07:00 Chloride 101 mmol/L (98-107) 06/25/18 07:00 Carbon Dioxide 28.8 mmol/L (21.0-32.0) 06/25/18 07:00 Anion Gap 7.2 mmol/L (3-11) 06/25/18 07:00 BUN 25 mg/dL (7-18) H 06/25/18 07:00 Creatinine 1.16 mg/dL (0.70-1.30) 06/25/18 07:00 Estimated GFR/1.73 m2 >= 60.00 (mL/min/1.73m2) 06/25/18 07:00 Glucose 264 mg/dL (70-100) H 06/25/18 07:00 Calcium 8.5 mg/dL (8.5-10.1) 06/25/18 07:00 Magnesium 2.1 mg/dL (1.8-2.4) 06/25/18 07:00 Total Bilirubin 0.4 mg/dL (0.2-1.0) 06/22/18 21:45 AST 26 U/L (15-37) 06/22/18 21:45 ALT 34 U/L (12-78) 06/22/18 21:45 Alkaline Phosphatase 137 U/L (46-116) H 06/22/18 21:45 Troponin I 0.08 ng/mL (0.00-0.06) H 06/23/18 14:03 NT-Pro-B Natriuret Pep 771 pg/mL (-299) H 06/22/18 21:45 Total Protein 7.8 g/dL (6.4-8.2) 06/22/18 21:45 Albumin 3.9 g/dL (3.4-5.0) 06/22/18 21:45 TSH 0.62 uIU/mL (0.358-3.74) 06/23/18 06:15
[2018-06-25] MEDS: Albuterol 2.5 MG/3 ML INH SOLN VIAL UPD ×2 (13:46→21:01)
--- NOTE | 2018-06-25 15:29 | NUR.NOTE ---
Nursing Note:06/25/18 @ 1441- Transfered from ICU to room 215 on Med surg via ambulation. Oriented to room and call raymundo system.
[2018-06-25] MEDS: predniSONE 20 MG TAB 40 MG PO (19:56)
[2018-06-25] MEDS: Apixaban 5 MG TAB 10 MG PO (19:56)
[2018-06-25] MEDS: Albuterol/Ipratropium 3 ML UPD VIAL UPD ×3 (20:01→20:45)
--- NOTE | 2018-06-25 20:35 | W.PM.PROGNOT ---
Date of Service Date of service: 06/25/18 Time of Service: 20:35 Assessment and Plan (1) COPD exacerbation: Current visit: Yes Status: Acute continuous DuoNeb; pulse oximetry was checked on room air and he is oxygenating at 95%. I will add Levaquin 750 mg po to treat acute bronchitis. continue current steroid treatment. Subjective Patient reports: shortness of breath Interval history since last seen: Parker is having increased shortness of breath w/ worsening wheezes. He states that his cough has become productive of thick mucous. Patient was given a DuoNeb treatment this evening about half an hour before nursing alerted me that he was feeling more dyspneic. He is afebrile and currently has been transitioned from iv corticosteroids to prednisone 40 mg bid. he had his evening dose of prednisone. He is not currently on antibiotics. His admission CTA of his chest did not show any PE, and no alveolar consolidation although he has peribronchial central thickening suggestive of bronchits. He also has emphysema and right basilar pleural based calcifications. I am going to give him another DuoNeb treatment as a continuous treatment for up to an hour to see if we can break his bronchospasm. I am also going to begin antibiotics given that he says that he has been coughing up thick sputum. Exam Const General: cooperative, acute distress mild and anxious Nutritional Appearance: overweight Orientation: alert, awake and oriented x3 Neck Neck: normal visual inspection, trachea midline and no JVD Resp Effort & Inspection: cough Quality of cough: productive and tachypneic Auscultation: wheezes expiratory wheezes, scattered wheezes, lower bilaterally and upper bilaterally Cardio Jugular venous pressure: no JVD Rate: regular rate Rhythm: regular rhythm Extrem General: normal to inspection and no clubbing, cyanosis or edema Objective Objective Clinical Data: Abnormal lab results 06/25/18 Range/Units 07:00 BUN 25 H (7-18) mg/dL Glucose 264 H (70-100) mg/dL Vital Signs Temperature 36.3 C L 06/25/18 19:29 Temperature Source Tympanic 06/25/18 19:29 Pulse 104 H 06/25/18 20:01 Pulse Rhythm Regular 06/25/18 16:05 Pulse 104 H 06/25/18 13:36 Respiratory Rate 24 06/25/18 20:01 Respiratory Effort Non-Labored 06/25/18 16:05 Respiratory Depth Normal 06/25/18 16:05 Respiratory Pattern Normal 06/25/18 16:05 Blood Pressure 138/81 06/25/18 19:29 Blood Pressure Mean 99 06/25/18 13:36 Blood Pressure Position Supine 06/24/18 00:05 Pulse Oximetry 95 06/25/18 20:01 Oxygen Delivery Method Room Air 06/25/18 20:01 Oxygen Flow Rate 0 06/25/18 20:01 Fraction of Inspired Oxygen (FIO2) 25 06/24/18 06:00 Pain Level 0 06/25/18 14:50 Intake & Output 06/24/18 06/25/18 06/25/18 23:59 11:59 23:59 Intake Total 650 / 650 1365 / 1365 1736 / 1736 Output Total 250 / 250 3250 / 3250 715 / 715 Balance 400 / 400 -1885 / -1885 1021 / 1021 Weight 76.3 kg Intake: IV 30 / 30 1000 / 1000 Oral 650 / 650 1335 / 1335 736 / 736 Output: Urine 250 / 250 3250 / 3250 715 / 715 Other: Urine Color Light Monalisa Light Monalisa Light Monalisa Urine Appearance Clear Clear Clear Urine Odor Normal Comment Arias in place Arais in place Arias removed at 1030. Pt has not voided since Voiding Methods Urinal Laboratory Results WBC 4.51 k/cumm (4.4-10.8) D 06/23/18 06:15 RBC 4.74 m/cumm (4.50-6.00) 06/23/18 06:15 Hgb 15.0 g/dL (13.5-17.5) 06/23/18 06:15 Hct 44.3 % (40.0-50.0) 06/23/18 06:15 MCV 93.5 fL (80-95) 06/23/18 06:15 MCH 31.6 pg (27.0-33.0) 06/23/18 06:15 MCHC 33.9 g/dL (32.0-36.0) 06/23/18 06:15 RDW 13.0 % (11.8-14.1) 06/23/18 06:15 Plt Count 210 x1000/uL (130-400) 06/23/18 06:15 MPV 11.5 fL (8.0-11.0) H 06/23/18 06:15 Immature Gran % 0.2 06/23/18 06:15 Neutrophils % 87.9 06/23/18 06:15 Lymphocytes % 10.6 06/23/18 06:15 Monocytes % 0.9 06/23/18 06:15 Eosinophils % 0.2 06/23/18 06:15 Basophils % 0.2 06/23/18 06:15 Absolute Neutrophils 3.96 k/cumm (1.2-6.7) 06/23/18 06:15 Absolute Lymphocytes 0.48 k/cumm (1.2-3.4) L 06/23/18 06:15 Absolute Monocytes 0.04 k/cumm (0.11-0.7) L 06/23/18 06:15 Absolute Eosinophils 0.01 k/cumm (0.0-0.7) 06/23/18 06:15 Absolute Basophils 0.01 k/cumm (0.0-0.2) 06/23/18 06:15 VBG pH 7.38 (7.32-7.43) 06/22/18 22:18 VBG pCO2 47 mm/Hg (34-47) 06/22/18 22:18 VBG pO2 61 mm/Hg (28-44) H 06/22/18 22:18 VBG HCO3 28 mmol/L (22-28) 06/22/18 22:18 VBG Total CO2 24 mmol/L (22-29) 06/22/18 22:18 VBG O2 Saturation 91 % (70-80) H 06/22/18 22:18 VBG Base Excess 2.3 mmol/L (-3-3) 06/22/18 22:18 Sodium 137 mmol/L (136-145) 06/25/18 07:00 Potassium 4.1 mmol/L (3.5-5.1) 06/25/18 07:00 Chloride 101 mmol/L (98-107) 06/25/18 07:00 Carbon Dioxide 28.8 mmol/L (21.0-32.0) 06/25/18 07:00 Anion Gap 7.2 mmol/L (3-11) 06/25/18 07:00 BUN 25 mg/dL (7-18) H 06/25/18 07:00 Creatinine 1.16 mg/dL (0.70-1.30) 06/25/18 07:00 Estimated GFR/1.73 m2 >= 60.00 (mL/min/1.73m2) 06/25/18 07:00 Glucose 264 mg/dL (70-100) H 06/25/18 07:00 Calcium 8.5 mg/dL (8.5-10.1) 06/25/18 07:00 Magnesium 2.1 mg/dL (1.8-2.4) 06/25/18 07:00 Total Bilirubin 0.4 mg/dL (0.2-1.0) 06/22/18 21:45 AST 26 U/L (15-37) 06/22/18 21:45 ALT 34 U/L (12-78) 06/22/18 21:45 Alkaline Phosphatase 137 U/L (46-116) H 06/22/18 21:45 Troponin I 0.08 ng/mL (0.00-0.06) H 06/23/18 14:03 NT-Pro-B Natriuret Pep 771 pg/mL (-299) H 06/22/18 21:45 Total Protein 7.8 g/dL (6.4-8.2) 06/22/18 21:45 Albumin 3.9 g/dL (3.4-5.0) 06/22/18 21:45 TSH 0.62 uIU/mL (0.358-3.74) 06/23/18 06:15
--- NOTE | 2018-06-25 20:50 | RESPIRATORY ---
RT called in to [facility] as patient exhibiting IE wheeze with SOB. By the time I had arrived, patient had already received 3 uni doses and still wheezing. No distress noted, patient states he's breathing easier, and room air saturation low 90's. Heart rate monitored T/O administration of uni doses 4 & 5 with no adverse reactions.
[2018-06-25] MEDS: guaiFENesin 600 MG TABCR 1200 MG PO (20:56)
[2018-06-25] MEDS: LEVOFLOXACIN 500 MG, LEVOFLOXACIN 250 MG 750 MG PO (22:46)
[2018-06-26] VITALS (11 sets, daily range): BP systolic 116–131; BP diastolic 65–82; PULSE 72–106; RESP 4–26; TEMP 35.8–36.8; O2SAT 93–96
[2018-06-26] MEDS: Albuterol/Ipratropium 3 ML UPD VIAL UPD ×2 (02:23→15:49)
[2018-06-26] MEDS: Metoprolol 12.5 MG TAB PO ×2 (02:40→13:59)
[2018-06-26] MEDS: Albuterol 2.5 MG/3 ML INH SOLN VIAL UPD (03:46)
--- NOTE | 2018-06-26 06:25 | DI.RAD_ITS ---
SYMPTOM/DIAGNOSIS: DYSPNEA, COPD EXACERBATION. PA AND LATERAL CHEST: 06/[address] on June 22 showed a partially calcified right base pleural radiodensity and this is also identified on chest film. The heart is not enlarged. The lungs otherwise appear clear. CONCLUSION: No evidence of acute change.
[2018-06-26 07:32] LABS: Anion Gap 9.7 mmol/L (3-11); BUN 28 mg/dL (7-18); CO2 28.3 mmol/L (21.0-32.0); CREATININE 1.23 mg/dL (0.70-1.30); Calcium 8.4 mg/dL (8.5-10.1); Chloride 95 mmol/L (98-107); Estimated GFR 57.84 (mL/min/1.73m2); Glucose 305 mg/dL (70-100); Magnesium 2.1 mg/dL (1.8-2.4); Sodium 133 mmol/L (136-145)
[2018-06-26] MEDS: Allopurinol 300 MG TAB PO (08:53)
[2018-06-26] MEDS: Tamsulosin 0.4 MG CAPCR PO (08:53)
[2018-06-26] MEDS: Hydrochlorothiazide 25 MG TAB PO (08:53)
[2018-06-26] MEDS: predniSONE 20 MG TAB 40 MG PO ×2 (08:53→20:03)
[2018-06-26] MEDS: amLODIPine 10 MG TAB PO (08:53)
[2018-06-26] MEDS: Isosorbide Mononitrate 30 MG TABCR PO (08:53)
[2018-06-26] MEDS: Losartan 50 MG TAB 100 MG PO (08:53)
[2018-06-26] MEDS: Magnesium Gluconate 500 MG TAB PO ×2 (08:53→20:03)
[2018-06-26] MEDS: Pantoprazole 40 MG VIAL IVP (08:54)
[2018-06-26] MEDS: Normal Saline Flush 10 ML SYR IVP (08:54)
[2018-06-26] MEDS: Insulin Aspart 300 UNITS/3 ML PEN SC ×6 (08:55→17:30)
--- NOTE | 2018-06-26 08:57 | DI.VRAD_ITS ---
EXAM: XR Chest, 2 Views EXAM DATE/TIME: 06/26/2018 6:26 AM CLINICAL HISTORY: 73 years old, male; Signs and symptoms; Other: Dyspnea, copd exacerbation TECHNIQUE: XR of the chest, 2 views. COMPARISON: CR CHEST 2 VIEWS PA,LAT 06/26/2011 6:54 AM FINDINGS: Lungs: Unremarkable. No consolidation. Pleural space: Blunting in the right costophrenic angle may represent pleural effusion, pleural reaction, or scar. Heart/Mediastinum: Unremarkable. No cardiomegaly. Bones/joints: Degenerative changes in the thoracic spine IMPRESSION: Blunting in the right costophrenic angle may represent pleural effusion, pleural reaction, or scar. Dictated and Authenticated by: Avelina Mata MD. Ordering:[facility] RICHARD NULL MD
[2018-06-26] MEDS: guaiFENesin 600 MG TABCR 1200 MG PO ×2 (08:59→20:03)
[2018-06-26] MEDS: Apixaban 5 MG TAB 10 MG PO ×2 (10:24→20:03)
--- NOTE | 2018-06-26 13:36 | PDOC.CMPRO ---
- If Service Date Differs Date of service: 06/26/18 Time of Service: 13:36 Care Management Progress Note S/O: Parker was heading down for a chest x-ray when CM came to visit this morning. Prescription for Eliquis and 30-day free coupon card faxed to [facility] in [place]. Awaiting co-pay information from Pharmacy. F#[phone] A: Parker is a 73 year old male admitted to [facility] 06/23/18 with COPD, DVT P: Parker will return home when medically ready per provider. No additional services anticipated at time of discharge. He will transport via private vehicle with his , Ludy. Parker will need to follow up with his primary care provider in the next few weeks to have medication prior authorization before the thirty days. CM will continue to offer support to patient, family, and care team regarding discharge planning and disposition.
--- NOTE | 2018-06-26 13:39 | CMPROGNOTE_ITS ---
- If Service Date Differs Date of service: 06/26/18 Time of Service: 13:36 Care Management Progress Note S/O: Parker was heading down for a chest x-ray when CM came to visit this morning. Prescription for Eliquis and 30-day free coupon card faxed to [facility] in [place]. Awaiting co-pay information from Pharmacy. F#[phone] A: Parker is a 73 year old male admitted to [facility] 06/23/18 with COPD, DVT P: Parker will return home when medically ready per provider. No additional services anticipated at time of discharge. He will transport via private vehicle with his , Ludy. Parker will need to follow up with his primary care provider in the next few weeks to have medication prior authorization before the thirty days. CM will continue to offer support to patient, family, and care team regarding discharge planning and disposition.
--- NOTE | 2018-06-26 19:23 | PGE_ITS ---
Date of Service Date of service: 06/26/18 Time of Service: 19:29 Assessment and Plan (1) COPD exacerbation: Current visit: Yes Status: Acute Ongoing for approximately 2 weeks and slowly worsening. No evidence of infectious pathology by imaging or history, and rapid influenza negative. Had vastly improved prior to last evening. Patient equates his symptoms with anxiety - by this morning appears to be back to feeling well. Consideration was given to potential PE in patient with known clot - however as patient remains hemodynamically stable, is not hypoxic, is fully anticoagulated with high dose Apixaban, and his symptoms are resolved a CT of the chest was not pursued. Continue Steroids, bronchodilators. Patient also started on antibiotics overnight, now day #1. Rapid Influenza checked and negative. (2) DVT (deep venous thrombosis): Current visit: Yes Status: Acute Evidence of a RLE DVT in setting of edema and calf pain - No evidence of PE by CT Scan that was somewhat limited. Initiated anticoagulation with Apixaban - Monitor symptoms closely. Of note Mr. Randle does have a history of prior malignancy with NSCLCa s/p resection in 2011. He does have a pulmonary nodule apparently under observation currently, but recurrence is not definitive. Will treat with Apixaban as above. (3) Essential hypertension: Current visit: Yes Status: Chronic Initial presentation with severe hypertension likely on the basis of respiratory distress and hypoxia. Patient was resumed on his home regimen with Nitro gtt discontinued. Blood Pressures appears vastly improved. Continue CCB, thiazide, and ARB. Patient also on BB. Doses confirmed with spouse and changed to match home regimen. (4) Elevated troponin I level: Current visit: Yes Status: Acute In setting of hypertension and hypoxia, likely reflects demand ischemia. Troponin elevation was minimal and equivocal (Peak of 0.10), downtrended with treatment of blood pressure and COPD exacerbation. ECHO checked and does indicate potential mild baslinferolateral hypokinesis, but with an intact LVEF. Will recommend stress test, potentially as an outpatient, once acute illness is over. (5) Lung cancer: Current visit: Yes Status: Chronic NSCLCa s/p right sided partial lobectomy in 2011, with discover of a new nodule on the left that has shown minimal growth over time, currently under observation with plans for repeat CT in July. Current CT Scan without mention of significant mass lesion or lymphadenopathy. Follows at the [place]. (6) Type 2 diabetes mellitus: Current visit: Yes Status: Chronic Continue to hold metformin - Currently on sliding scale (7) DVT prophylaxis: Current visit: Yes Status: Acute On therapeutic anticoagulation with Apixaban. Subjective Interval history since last seen: 73-year-old former smoker with a history of COPD and lung cancer status post partial right sided lobectomy in the past, admitted from [facility] emergency department on 06/23 with a diagnosis of acute COPD exacerbation and mildly elevated troponin. Mr. Randle has a history of NSCLCa s/p resection, with potential recurrence on the basis of a left sided nodule currently under observation. He also has a history of DM and HTN. The patient reported onset of dyspnea over the 2 weeks prior to admission. He also stated that his Lower Extremities have become more swollen over the last month. During his evaluation in the emergency room he was found to be tachypneic and tachycardic, with a grossly elevated blood pressure. A subsequent CT Scan was obtained, and essentially ruled out both PE and infiltrate. However, he was noted to have a minimal and equivocal elevation in troponin. The patient was treated with IV Steroids and nebs, and initiated on BiPAP therapy prior to referral for admission to the hospital. He was also started on a Nitroglycerin drip to treat his hypertension and potential CHF (LE Edema). Mr. Randle improved dramatically over the first night, coming off BiPAP by the morning and reported subjectively improvement as well. By yesterday morning he was doing very well and no longer requiring supplemental oxygen at rest. He is now comfortable appearing and nearing his baseline. Initial Ultrasound of his lower extremities obtained in the setting of LE Edema showed a RLE DVT that was non-occlusive, and although potentially acute was noted to have fairly high echogenicity raising the possibility of a chronic thrombus. His ECHO was checked and with normal LVEF, and mild hypokinesis of the basalinferolateral myocardium, with normal RV size and function - unfortunately Pulmonary Pressures could not be estimated. Overnight Mr. Randle developed an acute onset of dyspnea while maintaining his oxygenation. He responded well to nebulizer therapy, and was back to his baseline by the morning. His CXR was essentially unchanged. No other events were reported overnight. He continues to remain afebrile. Exam Narrative Exam Narrative: General: Patient appears comfortable, AAOX3, NAD Neck: Supple CV: Regular, nontachycardic, S1S2, No rubs, murmurs, or gallops. Pulmonary: Minimal diffuse bilateral wheezing - improved since initial exam. Abdomen: + Bowel Sounds, soft, nontender, nondistended Vascular: Bilateral lower extremity edema, R>L, also improved Psych: Normal mood and affect. Objective Objective Clinical Data: Abnormal lab results 06/26/18 Range/Units 06:55 Sodium 133 L (136-145) mmol/L Chloride 95 L (98-107) mmol/L BUN 28 H (7-18) mg/dL Glucose 305 H (70-100) mg/dL Calcium 8.4 L (8.5-10.1) mg/dL Vital Signs Temperature 36.5 C 06/26/18 15:31 Temperature Source Tympanic 06/26/18 15:31 Pulse 90 06/26/18 15:49 Pulse Rhythm Irregular 06/26/18 15:30 Pulse 104 H 06/25/18 13:36 Respiratory Rate 22 06/26/18 15:49 Respiratory Effort Non-Labored 06/26/18 15:30 Respiratory Depth Normal 06/26/18 15:30 Respiratory Pattern Normal 06/26/18 15:30 Blood Pressure 120/76 06/26/18 15:31 Blood Pressure Mean 99 06/25/18 13:36 Blood Pressure Position Supine 06/24/18 00:05 Pulse Oximetry 95 06/26/18 15:49 Oxygen Delivery Method Room Air 06/26/18 15:49 Oxygen Flow Rate 0 06/26/18 15:49 Fraction of Inspired Oxygen (FIO2) 25 06/24/18 06:00 Pain Level 0 06/26/18 15:31 Comment 06/26/18 08:40 Intake & Output 06/25/18 06/26/18 06/26/18 23:59 11:59 23:59 Intake Total 1856 / 1856 2009 1390 / 1390 Output Total 715 / 715 1575 / 1575 700 / 700 Balance 1141 / 1141 435 / 435 690 / 690 Weight 75.3 kg Intake: IV 1000 / 1000 Oral 856 / 856 2009 1390 / 1390 Output: Urine 715 / 715 1575 / 1575 700 / 700 Other: Urine Color Light Monalisa Pale Yellow Yellow Urine Appearance Clear Clear Clear Urine Odor Normal Normal None Comment Arias removed at 1030. Pt has not voided since Voiding Methods Urinal Urinal Urinal Laboratory Results WBC 4.51 k/cumm (4.4-10.8) D 06/23/18 06:15 RBC 4.74 m/cumm (4.50-6.00) 06/23/18 06:15 Hgb 15.0 g/dL (13.5-17.5) 06/23/18 06:15 Hct 44.3 % (40.0-50.0) 06/23/18 06:15 MCV 93.5 fL (80-95) 06/23/18 06:15 MCH 31.6 pg (27.0-33.0) 06/23/18 06:15 MCHC 33.9 g/dL (32.0-36.0) 06/23/18 06:15 RDW 13.0 % (11.8-14.1) 06/23/18 06:15 Plt Count 210 x1000/uL (130-400) 06/23/18 06:15 MPV 11.5 fL (8.0-11.0) H 06/23/18 06:15 Immature Gran % 0.2 06/23/18 06:15 Neutrophils % 87.9 06/23/18 06:15 Lymphocytes % 10.6 06/23/18 06:15 Monocytes % 0.9 06/23/18 06:15 Eosinophils % 0.2 06/23/18 06:15 Basophils % 0.2 06/23/18 06:15 Absolute Neutrophils 3.96 k/cumm (1.2-6.7) 06/23/18 06:15 Absolute Lymphocytes 0.48 k/cumm (1.2-3.4) L 06/23/18 06:15 Absolute Monocytes 0.04 k/cumm (0.11-0.7) L 06/23/18 06:15 Absolute Eosinophils 0.01 k/cumm (0.0-0.7) 06/23/18 06:15 Absolute Basophils 0.01 k/cumm (0.0-0.2) 06/23/18 06:15 VBG pH 7.38 (7.32-7.43) 06/22/18 22:18 VBG pCO2 47 mm/Hg (34-47) 06/22/18 22:18 VBG pO2 61 mm/Hg (28-44) H 06/22/18 22:18 VBG HCO3 28 mmol/L (22-28) 06/22/18 22:18 VBG Total CO2 24 mmol/L (22-29) 06/22/18 22:18 VBG O2 Saturation 91 % (70-80) H 06/22/18 22:18 VBG Base Excess 2.3 mmol/L (-3-3) 06/22/18 22:18 Sodium 133 mmol/L (136-145) L 06/26/18 06:55 Potassium 4.0 mmol/L (3.5-5.1) 06/26/18 06:55 Chloride 95 mmol/L (98-107) L 06/26/18 06:55 Carbon Dioxide 28.3 mmol/L (21.0-32.0) 06/26/18 06:55 Anion Gap 9.7 mmol/L (3-11) 06/26/18 06:55 BUN 28 mg/dL (7-18) H 06/26/18 06:55 Creatinine 1.23 mg/dL (0.70-1.30) 06/26/18 06:55 Estimated GFR/1.73 m2 57.84 (mL/min/1.73m2) 06/26/18 06:55 Glucose 305 mg/dL (70-100) H 06/26/18 06:55 Calcium 8.4 mg/dL (8.5-10.1) L 06/26/18 06:55 Magnesium 2.1 mg/dL (1.8-2.4) 06/26/18 06:55 Total Bilirubin 0.4 mg/dL (0.2-1.0) 06/22/18 21:45 AST 26 U/L (15-37) 06/22/18 21:45 ALT 34 U/L (12-78) 06/22/18 21:45 Alkaline Phosphatase 137 U/L (46-116) H 06/22/18 21:45 Troponin I 0.08 ng/mL (0.00-0.06) H 06/23/18 14:03 NT-Pro-B Natriuret Pep 771 pg/mL (-299) H 06/22/18 21:45 Total Protein 7.8 g/dL (6.4-8.2) 06/22/18 21:45 Albumin 3.9 g/dL (3.4-5.0) 06/22/18 21:45 TSH 0.62 uIU/mL (0.358-3.74) 06/23/18 06:15
[2018-06-26] MEDS: LEVOFLOXACIN 500 MG, LEVOFLOXACIN 250 MG 750 MG PO (20:03)
[2018-06-27] MEDS: Metoprolol 12.5 MG TAB PO ×2 (00:53→11:47)
[2018-06-27 00:57] VITALS: PULSE 88; RESP 4; O2SAT 96
[2018-06-27] MEDS: Albuterol/Ipratropium 3 ML UPD VIAL UPD (00:57)
[2018-06-27 03:30] VITALS: BP 133/84; PULSE 83; RESP 18; TEMP 36.3; O2SAT 94
[2018-06-27 07:40] VITALS: BP 129/85; PULSE 80; RESP 17; TEMP 37.2; O2SAT 98
[2018-06-27 07:44] LABS: Anion Gap 5.9 mmol/L (3-11); BUN 21 mg/dL (7-18); CO2 31.1 mmol/L (21.0-32.0); CREATININE 1.07 mg/dL (0.70-1.30); Calcium 8.6 mg/dL (8.5-10.1); Chloride 99 mmol/L (98-107); Glucose 274 mg/dL (70-100); Magnesium 2.2 mg/dL (1.8-2.4); Potassium 3.9 mmol/L (3.5-5.1); Sodium 136 mmol/L (136-145)
[2018-06-27] MEDS: Insulin Aspart 300 UNITS/3 ML PEN SC ×4 (08:25→12:06)
[2018-06-27] MEDS: Pantoprazole 40 MG VIAL IVP (08:26)
[2018-06-27] MEDS: guaiFENesin 600 MG TABCR 1200 MG PO (08:27)
[2018-06-27] MEDS: Normal Saline Flush 10 ML SYR IVP (08:27)
[2018-06-27] MEDS: Hydrochlorothiazide 25 MG TAB PO (08:27)
[2018-06-27] MEDS: Magnesium Gluconate 500 MG TAB PO (08:28)
[2018-06-27] MEDS: Allopurinol 300 MG TAB PO (08:28)
[2018-06-27] MEDS: Losartan 50 MG TAB 100 MG PO (08:28)
[2018-06-27] MEDS: Apixaban 5 MG TAB 10 MG PO (08:28)
[2018-06-27] MEDS: Tamsulosin 0.4 MG CAPCR PO (08:28)
[2018-06-27] MEDS: predniSONE 20 MG TAB 40 MG PO (08:28)
[2018-06-27] MEDS: Isosorbide Mononitrate 30 MG TABCR PO (08:28)
[2018-06-27] MEDS: amLODIPine 10 MG TAB PO (08:28)
[2018-06-27] MEDS: Docusate Sodium 100 MG CAP PO (08:28)
[2018-06-27] MEDS: Potassium Chloride 10 MEQ TABCR PO (09:10)
[2018-06-27] MEDS: Magnesium Oxide 400 MG TAB PO (09:10)
[2018-06-27 11:40] VITALS: BP 111/76; PULSE 82; RESP 18; TEMP 37; O2SAT 96
--- NOTE | 2018-06-27 12:39 | DSE_ITS ---
Date of service: 06/27/18 Time of Service: 12:29 DS: Diagnosis Discharge Diagnosis (1) COPD exacerbation: Status: Acute (2) DVT (deep venous thrombosis): Status: Acute (3) Essential hypertension: Status: Chronic (4) Elevated troponin I level: Status: Acute (5) Lung cancer: Status: Chronic Discharge Plan Disposition Patient Disposition: HOME Condition: Improving Discharge Details Reason For Visit: COPD EXACERBATION Admit Date/Time: 06/23/18 00:45 Admit Provider: Don Gage Attending Provider: Don Gage Primary Care Provider: [place] [place] Hospital Course Hospital Course: CC: SOB HPI: 73-year-old former smoker with a history of COPD and lung cancer status post partial right sided lobectomy in the past, admitted from [facility] emergency department on 06/23 with a diagnosis of acute COPD exacerbation and mildly elevated troponin. Mr. Randle has a history of NSCLCa s/p resection, with potential recurrence on the basis of a left sided nodule currently under observation. He also has a history of DM and HTN. The patient reported onset of dyspnea over the 2 weeks prior to admission. He also stated that his Lower Extremities had become more swollen over the last month. During his evaluation in the emergency room he was found to be tachypneic and tachycardic, with a grossly elevated blood pressure. A subsequent CT Scan was obtained, and essentially ruled out both PE and infiltrate. However, he was noted to have a minimal and equivocal elevation in troponin. The patient was treated with IV Steroids and nebs, and initiated on BiPAP therapy prior to referral for admission to the hospital. He was also started on a Nitroglycerin drip to treat his hypertension. Mr. Randle improved dramatically over the first night, coming off BiPAP by the morning and reported subjectively improvement as well. He had been doing well and no longer requiring supplemental oxygen at rest, comfortable appearing and nearing his baseline. However 2 nights ago he had an acutely worsened dyspneic episode which resolved with continuous nebs. He was neither hypoxic nor hypotensive, and a follow-up CXR was unchanged. He was at time initiated also on levofloxacin as he reported worsening cough. By the following morning he reported being back at his baseline breathing. Today he is doing well and without complaints. Initial Ultrasound of lower extremities obtained in the setting of LE Edema showed a RLE DVT that was non-occlusive, and although potentially acute was noted to have fairly high echogenicity raising the possibility of a chronic thrombus. His ECHO was checked and with normal LVEF, and mild hypokinesis of the basalinferolateral myocardium, with normal RV size and function - unfortunately Pulmonary Pressures could not be estimated. Hospital Course: (1) COPD exacerbation: Ongoing for approximately 2 weeks and slowly worsening prior to admission. No evidence of infectious pathology by imaging or history, and rapid influenza negative. Had vastly improved prior to 2 nights ago. Patient equated his symptoms with anxiety - and by the morning appeared to be back to feeling well. Consideration was given to potential PE in patient with known clot - however as patient remained hemodynamically stable, not hypoxic, remained fully anticoagulated with high dose Apixaban, and his symptoms were resolved. A repeat CT of the chest was not pursued. Current breathing is closer to baseline. Will discontinue per patient's wishes, and taper Steroids and continue bronchodilators. Patient also started on antibiotics, now day #2. Rapid Influenza checked and negative. (2) DVT (deep venous thrombosis): Evidence of a RLE DVT in setting of edema and calf pain - No evidence of PE by CT Scan that was somewhat limited. Initiated anticoagulation with Apixaban. This drug may not be covered by the [place] - a one month script will be provided to the patient until he follows up with the [place] to determine long course anticoagulation. He has an appointment made soon. Of note Mr. Randle does have a history of prior malignancy with NSCLCa s/p resection in 2011. He does have a pulmonary nodule apparently under observation currently, but recurrence is not definitive. Will treat with Apixaban as above. Given need for anticoagulation and current steroid use will continue PPI therapy indefinitely at discharge. (3) Essential hypertension: Initial presentation with severe hypertension likely on the basis of respiratory distress and hypoxia. Patient was resumed on his home regimen with Nitro gtt discontinued. Blood Pressures appears vastly improved. Continue CCB, thiazide, and ARB. Patient also on BB. (4) Elevated troponin I level: In setting of hypertension and hypoxia, likely reflects demand ischemia. Troponin elevation was minimal and equivocal (Peak of 0.10), downtrended with treatment of blood pressure and COPD exacerbation. ECHO checked and does indicate potential mild baslinferolateral hypokinesis, but with an intact LVEF. Will recommend stress test as an outpatient, once acute illness is over. (5) Lung cancer: NSCLCa s/p right sided partial lobectomy in 2011, with discover of a new nodule on the left that has shown minimal growth over time, currently under observation with plans for repeat CT in July. Current CT Scan without mention of significant mass lesion or lymphadenopathy. Follows at the [place]. (6) Type 2 diabetes mellitus: Resume metformin at discharge (7) Urinary Retention Mr. Randle had initially experienced urinary retention requiring roger catheterization. He was initiated on an alpha-kirby, with a successful ensuing voiding trial. He will be continued on Flomax until evaluated by his PCP. (7) Code Status Confirmed DNR/DNI. Home Meds and New Rx's Prescriptions: New apixaban [Eliquis] 5 mg Tablet 10 mg PO BID Qty: 70 RF: 0 tamsulosin 0.4 mg Capsule 0.4 mg PO DAILY Qty: 30 RF: 0 levofloxacin 750 mg tablet 750 mg PO QPM Qty: 3 RF: 0 prednisone 10 mg tablet 10 mg PO DAILY Qty: 44 RF: 0 omeprazole 40 mg capsule,delayed release(DR/EC) 40 mg PO DAILY Qty: 30 RF: 0 Continue amlodipine 10 mg Tablet 10 mg PO DAILY RF: 0 metformin 1,000 mg Tablet 1,000 mg PO DAILY RF: 0 losartan 25 mg Tablet 100 mg PO DAILY RF: 0 hydrochlorothiazide 12.5 mg Capsule 25 mg PO DAILY RF: 0 allopurinol 300 mg Tablet 300 mg PO DAILY RF: 0 metoprolol succinate 25 mg Tablet Extended Release 24 Hr 12.5 mg PO DAILY RF: 0 albuterol sulfate 90 mcg/actuation Hfa Aerosol Inhaler 2 puff INHALATION Q6H PRNRF: 0 tiotropium bromide [Spiriva with HandiHaler] 18 mcg Capsule, W/Inhalation Device 1 cap INHALATION DAILY RF: 0 isosorbide mononitrate 10 mg Tablet 30 mg PO DAILY RF: 0 Discharge Instructions Instructions: Urinary Retention in Men (GEN), Deep Venous Thrombosis (DC), COPD (Chronic Obstructive Pulmonary Disease) (DC), Blood Thinners (DC) Additional Instructions: Please see your primary doctor within 1 week of discharge. Activity:: No Strenuous Activity Equipment/Supplies:: No Equipment Needed Diet:: Carb Counting Discharge Orders Discharge Orders: Discharge Order (Routine); Ordered 06/27/18 Ordered By: King Pineda Exam Narrative Exam Narrative: General: Patient appears comfortable, AAOX3, NAD Neck: Supple CV: Regular, nontachycardic, S1S2, No rubs, murmurs, or gallops. Pulmonary: Minimal diffuse bilateral wheezing now essentially resolved. Abdomen: + Bowel Sounds, soft, nontender, nondistended Vascular: Bilateral lower extremity edema, R>L, now appears resolved. Psych: Normal mood and affect. DS: Data Vitals/I&O Vitals and I&O: Vital Signs Temperature 37.2 C 06/27/18 07:40 Temperature Source Tympanic 06/27/18 07:40 Pulse 80 06/27/18 07:40 Pulse Rhythm Irregular 06/27/18 07:55 Pulse 104 H 06/25/18 13:36 Respiratory Rate 17 06/27/18 07:40 Respiratory Effort Non-Labored 06/27/18 07:55 Respiratory Depth Normal 06/27/18 07:55 Respiratory Pattern Normal 06/27/18 07:55 Blood Pressure 129/85 06/27/18 07:40 Blood Pressure Mean 99 06/25/18 13:36 Blood Pressure Position Supine 06/24/18 00:05 Pulse Oximetry 98 06/27/18 07:40 Oxygen Delivery Method Room Air 06/27/18 07:40 Oxygen Flow Rate 0 06/27/18 07:40 Fraction of Inspired Oxygen (FIO2) 25 06/24/18 06:00 Pain Level 0 06/27/18 08:26 Comment 06/26/18 08:40 Intake & Output 06/26/18 06/27/18 06/27/18 23:59 11:59 23:59 Intake Total 1890 / 1890 490 / 490 Output Total 1650 / 1650 1550 / 1550 Balance 240 / 240 -1060 / -1060 Intake: Oral 1890 / 1890 490 / 490 Output: Urine 1650 / 1650 1550 / 1550 Other: Urine Color Pale Pale Yellow Urine Appearance Clear Clear Urine Odor Normal Normal Voiding Methods Urinal Urinal Completed studies during hospitalization [Text1]: Exam(s) a CT:CT chest PE CTA SYMPTOM/DIAGNOSIS: SHORTNESS OF BREATH, LUNG CANCER, TACHY, HEMOPTYSIS CT ANGIOGRAPHY CHEST: 06/22/18 CT angiography of the chest was performed with intravenous infusion of 100 cc Omnipaque 350. Note is made of vertebral body fusion of the thoracic spine with flowing osteophytes consistent with DISH. There is moderate motion artifact on this study which limits interpretation. No evidence of pulmonary embolic disease. No thoracic aortic dissection or aneurysm. Moderate atheromatous calcification of the aorta noted. Images obtained through the upper abdomen show grossly unremarkable appearance of visualized portions of liver, spleen, pancreas, adrenals and kidneys. No evidence of mediastinal mass or adenopathy. There is diffuse central lobular emphysema. There is peribronchial thickening particularly centrally. There are areas of apparent linear pleural and pulmonary scarring with some calcified pleural plaque in the right lung base. CONCLUSION: No evidence of pulmonary embolic disease. Right lung base partially calcified pleural/parenchymal calcification. Marked central lobular emphysema. EXAM: CT Angiography Chest With Intravenous Contrast EXAM DATE/TIME: 06/22/2018 10:39 PM CLINICAL HISTORY: 73 years old, male; Signs and symptoms; Shortness of breath; Patient HX: SOB, lung CA, tachy, hemoptysis COMPARISON: CR CHEST 2 VIEWS PA,LAT 06/26/2011 6:54 AM FINDINGS: Pulmonary arteries: Normal. No pulmonary emboli. Aorta: Normal. No aortic aneurysm. No aortic dissection. Lungs: Mild centrilobular destruction of lung parenchyma. There is some parenchymal scarring the right lung base. Pleural space: Right lower pleural space there is pleural thickening which looks chronic with calcification. Heart: Normal. No cardiomegaly. No pericardial effusion. Bones/joints: Unremarkable. No acute fracture. Soft tissues: Unremarkable. Lymph nodes: Unremarkable. No enlarged lymph nodes. Other findings: Breathing motion degradation of image quality through the lung bases. IMPRESSION: 1. No obvious pulmonary emboli. There is limited visualization of the segmental vessels in the bases secondary to breathing motion degradation. 2. Right lower pleural space has chronic thickening with calcification. This also some parenchymal scar in the right base. Exam(s) a US:US extremity venous BI SYMPTOM/DIAGNOSIS: B/L LOWER EXTREMITY EDEMA, CALF PAIN DUPLEX VENOUS ULTRASOUND BOTH LOWER EXTREMITIES: 06/23/18 Duplex evaluation of the deep venous systems of both lower extremities was performed according to the usual protocol. No DVT identified on the left. In the common femoral vein on the right there is focal echogenic nonocclusive thrombus. The fairly high echogenicity would raise the possibility that this is chronic thrombus. No previous examinations available for comparison. CONCLUSION: 1. Negative left lower extremity DVT ultrasound 2. Right lower extremity DVT ultrasound shows non occlusive common femoral vein thrombus, chronic vs acute. Exam(s) a US:US echocardiogram *STUDY CONCLUSIONS* Summary: 1. Left ventricle: The cavity size was normal. Systolic function was normal. The estimated ejection fraction was 55-60%. Mild hypokinesis of the basalinferolateral myocardium. Diastolic parameters were normal for age. There was no evidence of elevated ventricular filling pressure by Doppler parameters. 2. Mitral valve: There was mild regurgitation. 3. Right ventricle: The cavity size was normal. Wall thickness was normal. Systolic function was normal. 4. Atrial septum: No defect or patent foramen ovale was identified. 5. Pulmonary arteries: Systolic pressure could not be accurately estimated. 6. Inferior vena cava: The vessel was patent and normal in size. The respirophasic diameter changes were in the normal range (greater than or equal to 50%), consistent with normal central venous pressure. EXAM: XR Chest, 2 Views EXAM DATE/TIME: 06/26/2018 6:26 AM CLINICAL HISTORY: 73 years old, male; Signs and symptoms; Other: Dyspnea, copd exacerbation COMPARISON: CR CHEST 2 VIEWS PA,LAT 06/26/2011 6:54 AM FINDINGS: Lungs: Unremarkable. No consolidation. Pleural space: Blunting in the right costophrenic angle may represent pleural effusion, pleural reaction, or scar. Heart/Mediastinum: Unremarkable. No cardiomegaly. Bones/joints: Degenerative changes in the thoracic spine IMPRESSION: Blunting in the right costophrenic angle may represent pleural effusion, pleural reaction, or scar. Labs on day of discharge: Labs from last 24 hours 06/27/18 07:10 Sodium 136 Potassium 3.9 Chloride 99 Carbon Dioxide 31.1 Anion Gap 5.9 BUN 21 H D Creatinine 1.07 Estimated GFR/1.73 m2 >= 60.00 Glucose 274 H Calcium 8.6 Magnesium 2.2 PFSH Medical History DVT (deep venous thrombosis) (Acute) COPD exacerbation (Acute) Type 2 diabetes mellitus (Chronic) Essential hypertension (Chronic) COPD (chronic obstructive pulmonary disease) (Chronic) Lung cancer (Chronic) Social History Smoking/Tobacco Use Status: Current every day tobacco type: e-cigarettes Surgical History S/P lobectomy of lung (Resolved) Status post ORIF of fracture of ankle (Resolved)
--- NOTE | 2018-06-27 12:49 | PTTR_ITS ---
Date of service: 06/27/18 Time of Service: 12:48 PT Notes Inpatient Physical Therapy Treatment Note Date: 06/27/18 PRECAUTIONS: Fall SUBJECTIVE: Parker is agreeable to PT OBJECTIVE: PAIN: No c/o pain BED MOBILITY/TRANSFERS Supine-sit: I Sit-stand: S Stand-sit: S GAIT Assistive Device: No AD Weight bearing: Full Assist: CGA-SBA Distance: 250' STAIRS:Up/down 3x4 and 2x6 using 1 rail and a step-over pattern with supervision ASSESSMENT: Patient tolerated session well with no complaints. He demonstrates mild unsteadiness with gait without assistive device, requiring CGA -SBA. Patient would benefit from continued strengthening and gait training for improved mobility and endurance. PLAN: Continue with PT's POC TREATMENT CODE/TIME: 23 minutes; TAx2
--- NOTE | 2018-06-27 14:27 | PT.INDS ---
Date of service: 06/27/18 Time of Service: 14:27 PT Notes Inpatient Physical Therapy Discharge Summary Date: 06/27/18 Dates of Service: 06/24/18-06/27/18 SUBJECTIVE: NT OBJECTIVE: 06/24/18-06/27/18 Bed Mobility/Transfers: Supine-sit: independent Sit-stand: supervision with FWW Stand-sit: supervision Sit-supine: supervision Gait: SBA with FWW up to 250ft Stairs: up/down 5 steps with railing supervision Balance: Static Sitting: normal Dynamic Sitting: normal Static Standing: fair Dynamic Standing: fair Assessment: Pt is a 73yr old male admitted with chronic obstructive pulmonary disease exacerbation and right lower extremity deep vein thrombosis. Pt was seen for 3 PT visits. Progressed from SBA standing transfers to supervision, from SBA gait with FWW 50ftx2 to SBA gait with FWW 250ft, able to ascend/descend 5 steps with railing supervision. Pt was discharged to home setting. Goals: Goals X1 week 1. Supine-Sit : independent 2. Sit-Supine : independent 3. Sit-Stand : independent 4. Stand-Sit : independent 5. Bed-Chair : supervision 6. Chair-Bed : supervision 7. Gait : supervision with no device 75ft 8. Stairs : up/down 4 steps with railing SBA Pt met goals # 1, 5, 6, 8 DISCHARGE RECOMMENDATIONS: Home G Codes in the area mobility of walking and moving around:projected status GP [id number]. Discharge status (if discharging) GP [id number] CK Gayle Hough PT
--- NOTE | 2018-06-27 14:31 | INDS_ITS ---
Date of service: 06/27/18 Time of Service: 14:27 PT Notes Inpatient Physical Therapy Discharge Summary Date: 06/27/18 Dates of Service: 06/24/18-06/27/18 SUBJECTIVE: NT OBJECTIVE: 06/24/18-06/27/18 Bed Mobility/Transfers: Supine-sit: independent Sit-stand: supervision with FWW Stand-sit: supervision Sit-supine: supervision Gait: SBA with FWW up to 250ft Stairs: up/down 5 steps with railing supervision Balance: Static Sitting: normal Dynamic Sitting: normal Static Standing: fair Dynamic Standing: fair Assessment: Pt is a 73yr old male admitted with chronic obstructive pulmonary disease exacerbation and right lower extremity deep vein thrombosis. Pt was seen for 3 PT visits. Progressed from SBA standing transfers to supervision, from SBA gait with FWW 50ftx2 to SBA gait with FWW 250ft, able to ascend/ descend 5 steps with railing supervision. Pt was discharged to home setting. Goals: Goals X1 week 1. Supine-Sit : independent 2. Sit-Supine : independent 3. Sit-Stand : independent 4. Stand-Sit : independent 5. Bed-Chair : supervision 6. Chair-Bed : supervision 7. Gait : supervision with no device 75ft 8. Stairs : up/down 4 steps with railing SBA Pt met goals # 1, 5, 6, 8 DISCHARGE RECOMMENDATIONS: Home G Codes in the area mobility of walking and moving around:projected status GP [id number]. Discharge status (if discharging) GP [id number] CK Gayle Hough PT
--- NOTE | 2018-06-27 14:57 | PDOC.CMDIS ---
- If Service Date Differs Date of service: 06/27/18 Time of Service: 14:57 LACE Index Scoring Tool - Questions: Length of Stay (in days): 4 - 6 Acuity (Admit via E.D.?): Yes Comorbidities: Diabetes w/o Complication, Congestive Heart Failure, Chronic Pulmonary Disease E.D. Visits: 1 - Answers: Total Score: 13 Risk of Readmission: High Risk Care Management Discharge Reason for Hospitalization: COPD Discharge Plan: Parker is being discharged home today with no addtional services. [facility] CM [facility]ed discharged summary to the [place] including medicaitons. CM left a voicemail for [place] care coordiantor at [place] in [place] notifying her of discharge and request follow up for Eliquis. CM was able to coordiante a thirty day trial of Eliquis with no copay through [email or web address], he will need addtional resources for ongoing coverage as the [facility]AC's. Family is aware and will follow up with pcp as directed. Spouse is here with the patient and understands instructions. Spouse to transport pt home via private car at time of discharge. Patient/Family Education Needs: Discharge education, follow up plan of care, limitations and self management including ask me three discussion.
--- NOTE | 2018-06-27 15:12 | CMDISCH_ITS ---
- If Service Date Differs Date of service: 06/27/18 Time of Service: 14:57 LACE Index Scoring Tool - Questions: Length of Stay (in days): 4 - 6 Acuity (Admit via E.D.?): Yes Comorbidities: Diabetes w/o Complication, Congestive Heart Failure, Chronic Pulmonary Disease E.D. Visits: 1 - Answers: Total Score: 13 Risk of Readmission: High Risk Care Management Discharge Reason for Hospitalization: COPD Discharge Plan: Parker is being discharged home today with no addtional services. He [facility] . CM faxed discharged summary to the [place] including medicaitons. CM left a voicemail for Chronic care coordiantor at [facility] in [place] notifying her of discharge and request follow up for Eliquis. CM was able to coordiante a thirty day trial of Eliquis with no copay through [employer], he will need addtional resources for ongoing coverage as the [facility] not [facility] the NOAC's. Family is aware and will follow up with pcp as directed. Spouse is here with the patient and understands instructions. Spouse to transport pt home via private car at time of discharge. Patient/Family Education Needs: Discharge education, follow up plan of care, limitations and self management including ask me three discussion.
== END 2018-06-27 14:09 | disposition home or self-care (01) | DRG 191 ==
LOC: ER 06-23 01:05 → ICU 06-23 10:41 → MS 06-27 12:39 → ICU 07-18 15:07
PROVIDERS: Admitting Provider Internal Medicine; Emergency Provider Student in an Organized Health Care Education/Training Program; Visit Provider Internal Medicine
DX: J44.1 Chronic obstructive pulmonary disease with (acute) exacerbation (principal); I82.411 Acute embolism and thrombosis of right femoral vein; I24.8 Other forms of acute ischemic heart disease; R09.02 Hypoxemia; I10 Essential (primary) hypertension; R60.0 Localized edema; R33.9 Retention of urine, unspecified; I34.0 Nonrheumatic mitral (valve) insufficiency; Z87.891 Personal history of nicotine dependence; Z90.2 Acquired absence of lung [part of]; E11.9 Type 2 diabetes mellitus without complications; F41.9 Anxiety disorder, unspecified; Z79.84 Long term (current) use of oral hypoglycemic drugs; Z71.3 Dietary counseling and surveillance; R91.1 Solitary pulmonary nodule; Z85.118 Personal history of other malignant neoplasm of bronchus and lung; Z23 Encounter for immunization
CPT/HCPCS: 36415; 71275; 80048; 80053; 82805; 87449; 93005; 93306; 94640; 96365; 96366; 96375; 97162; 97530; 99223; 99232; 99233; 99239; 99291; 99357; J1650; 71046; 83735; 83880; 84443; 84484; 85025; 93010; 93970; 94660; 99356; J1941; J2930; J3490; J7512; J7611; J7613; J7620

== ENCOUNTER 2019-01-26 16:30 | Emergency (ER) | payer MEDICARE, SELFPAY ==
[2019-01-26] VITALS (76 sets, daily range): BP systolic 105–167; BP diastolic 59–124; PULSE 61–167; RESP 4–54; TEMP 37.1; O2SAT 90–100
--- NOTE | 2019-01-26 16:38 | DI.RAD_ITS ---
SYMPTOM/DIAGNOSIS: SHORTNESS OF BREATH PORTABLE CHEST: Comparison is made with 26 Jun 2018. Blunting is again noted at the right costophrenic angle. There are increased patchy densities seen at the right lung base which could represent a developing infiltrate. The left lung appears clear. The heart size is within normal limits. IMPRESSION: Question right lower lobe infiltrate.
--- NOTE | 2019-01-26 16:54 | W.ED.GENAD ---
Discharge Plan Disposition Patient Disposition: [facility] Condition: Stable Discharge Details Chief Complaint: SOB Clinical Impression: Non-ST elevation MD (NSTEMI), COPD (chronic obstructive pulmonary disease), CHF (congestive heart failure) Primary Care Provider: [facility] [facility] Provider: Petr Gutierrez [place] Meds and New Rx's Prescriptions: No Action amlodipine 10 mg Tablet 10 mg PO DAILY RF: 0 metformin 1,000 mg Tablet 1,000 mg PO DAILY RF: 0 allopurinol 300 mg Tablet 300 mg PO DAILY RF: 0 albuterol sulfate 90 mcg/actuation Hfa Aerosol Inhaler 2 puff INHALATION Q6H PRNRF: 0 Spiriva with HandiHaler 18 mcg Capsule, W/Inhalation Device 1 cap INHALATION DAILY RF: 0 Eliquis 5 mg Tablet 10 mg PO BID Qty: 70 RF: 0 tamsulosin 0.4 mg Capsule 0.4 mg PO DAILY Qty: 30 RF: 0 omeprazole 40 mg capsule,delayed release(DR/EC) 40 mg PO DAILY Qty: 30 RF: 0 atorvastatin 10 mg Tablet 5 mg PO DAILY RF: 0 isosorbide mononitrate 30 mg Tablet Extended Release 24 Hr 30 mg PO QAM RF: 0 hydrochlorothiazide 25 mg Tablet 25 mg PO DAILY RF: 0 losartan 100 mg Tablet 100 mg PO DAILY RF: 0 metoprolol tartrate 25 mg Tablet 12.5 mg PO BID RF: 0 budesonide-formoterol 160-4.5 mcg/actuation Hfa Aerosol Inhaler 2 puff INHALATION BID RF: 0 Discharge Data Discharge Date/Time-TO BE ENTERED AT DEPARTURE: 01/26/19 22:29 Medical Decision Making <Joseph Salter MD - Last Filed: 01/27/19 12:49> 17:00 --73-year-old male with multiple medical problems including history of lung cancer status post lobectomy, DVT, now on Eliquis, CHF, COPD, here with worsening shortness of breath over the past 14 hours. Patient with rales and wheeze on exam. Saturating low 90s. Hypertensive and tachycardic. Consider ACS. ECG reviewed and interpreted by me: Sinus tachycardia 136 bpm, normal axis, nonspecific mild ST depression noted laterally. Concern for acute CHF exacerbation. Will check BNP. Lasix 20mg IV. Concern for acute COPD exacerbation: Plan to give Solu-Medrol and DuoNeb treatment. --Labs reviewed and elevated troponin. Elevated BNP. Normal creatinine. Concern for an STEMI and acute CHF exacerbation. Consider PE. Patient is anticoagulated so lower risk. Plan to obtain CT of the chest if patient can tolerate. 17:30 --I called [facility] transfer center to request emergent transfer. Awaiting callback. ECG sent for the review. Patient got up to urinate and had decline in status. Increased work of breathing. Tachycardic. Hypertensive. Plan to initiate nitroglycerin sublingual and infusion. Plan to also start BiPAP. Patient cannot tolerate CT imaging at this time. 18:05 -- Reviewed echo from 06/26: Summary: 1. Left ventricle: The cavity size was normal. Systolic function was normal. The estimated ejection fraction was 55-60%. Mild hypokinesis of the basalinferolateral myocardium. Diastolic parameters were normal for age. There was no evidence of elevated ventricular filling pressure by Doppler parameters. 2. Mitral valve: There was mild regurgitation. 3. Right ventricle: The cavity size was normal. Wall thickness was normal. Systolic function was normal. 4. Atrial septum: No defect or patent foramen ovale was identified. 5. Pulmonary arteries: Systolic pressure could not be accurately estimated. 6. Inferior vena cava: The vessel was patent and normal in size. The respirophasic diameter changes were in the normal range (greater than or equal to 50%), consistent with normal central venous pressure. Spoke with Dr. Carrasquillo (hospitalist at [facility]) able to accept patient for SCU level bed. Awaiting bed confirmation. --Chest x-ray reviewed and interpreted by radiology: Minimal new atelectasis versus consolidation in the right lung base. Lactic acid 2.9. I will send blood cultures. I will give doxycycline 100 mg IV to cover for possible infectious process. Patient was reassessed and notes he feels much better on nitroglycerin drip at 15mcg/min and on BiPAP. BP improved. Still tachycardic. Still awaiting bed availability. <Petr Gutierrez MD - Last Filed: 01/26/19 22:45> Patient signed out to me pending transfer to [facility]. He has been stable and is off BiPAP. He remains tachycardic 115-120 range. With some exertion he jumps up higher. It is sinus on the monitor. He has been this way since arrival. He states he is not having any pain feels much better than when he presented here. He had been using nebulized breathing treatments all day long. His lungs still have some wheezing present. He also has crackles. Second troponin did go up some, now at 1.75. We will continue him on nitroglycerin drip. Would not beta-kirby. Have discussed with paramedics doing transfer. Continue management for CHF and non-STEMI at this point. He is stable for transport to [facility] for further management. Lab Data Lab results reviewed: Yes I reviewed the patient's lab results. HPI <Joseph Salter MD - Last Filed: 01/27/19 12:49> General Mode of arrival: ambulatory. Date/Time Provider Initiated Documentation: 01/26/19 16:38. Limitations to Documentation: no limitations. Information obtained by: patient. HPI Narrative: 73-year-old male with multiple medical problems including history of lung ca status post right lobectomy, COPD, CHF, diabetes, hypertension, DVT, on Eliquis, here with chief complaint of shortness of breath. Patient notes that over the past 14 hours she has had persistent and worsening shortness of breath. Symptoms are worse with exertion. He has no associated chest pain. Patient notes chronic unchanged lower extremity edema. No calf pain. Patient has been using frequent albuterol nebs at home today without relief. He also notes associated cough. Denies fever. Related Data Home Medications Medication Instructions Recorded Confirmed Spiriva with HandiHaler 1 cap INHALATION DAILY 06/22/18 01/26/19 albuterol sulfate 2 puff INHALATION Q6H PRN 06/22/18 01/26/19 allopurinol 300 mg PO DAILY 06/22/18 01/26/19 amlodipine 10 mg PO DAILY 06/22/18 01/26/19 metformin 1,000 mg PO DAILY 06/22/18 01/26/19 apixaban [Eliquis] 10 mg PO BID #70 tab 06/27/18 01/26/19 omeprazole 40 mg PO DAILY #30 cap 06/27/18 01/26/19 tamsulosin 0.4 mg PO DAILY #30 cap 06/27/18 01/26/19 atorvastatin 5 mg PO DAILY 01/26/19 01/26/19 budesonide-formoterol 2 puff INHALATION BID 01/26/19 01/26/19 hydrochlorothiazide 25 mg PO DAILY 01/26/19 01/26/19 isosorbide mononitrate 30 mg PO QAM 01/26/19 01/26/19 losartan 100 mg PO DAILY 01/26/19 01/26/19 metoprolol tartrate 12.5 mg PO BID 01/26/19 01/26/19 Previous Rx's Medication Instructions Recorded apixaban [Eliquis] 10 mg PO BID #70 tab 06/27/18 omeprazole 40 mg PO DAILY #30 cap 06/27/18 tamsulosin 0.4 mg PO DAILY #30 cap 06/27/18 Allergies Allergy/AdvReac Type Severity Reaction Status Date / Time No Known Allergies Allergy Unverified 06/22/18 22:14 General Stated Complaint: SOB JEANE: 2 Review of Systems <Joseph Salter MD - Last Filed: 01/27/19 12:49> Review of Systems All systems reviewed & are unremarkable except as noted in HPI and below Constitutional Denies fever(s) Cardiovascular Reports dyspnea Respiratory Reports as per HPI and Reports dyspnea PFSH <Joseph Salter MD - Last Filed: 01/27/19 12:49> Medical History DVT (deep venous thrombosis) (Acute) COPD exacerbation (Acute) Type 2 diabetes mellitus (Chronic) Essential hypertension (Chronic) COPD (chronic obstructive pulmonary disease) (Chronic) Lung cancer (Chronic) Surgical History S/P lobectomy of lung (Resolved) Status post ORIF of fracture of ankle (Resolved) Social History Smoking/Tobacco Use Status: Current every day Tobacco Type: e-cigarettes Alcohol Intake: current Alcohol Intake frequency: a few times a month Alcohol type: beer Drug use: Never Substance use type: does not use Do you feel safe at home: Yes Do you feel safe in your relationship?: Yes Exam <Joseph Salter MD - Last Filed: 01/27/19 12:49> Const General: cooperative and no acute distress HENMT Head: normocephalic and atraumatic Mouth: moist mucous membranes Eyes Conjunctivae: normal conjunctivae Sclera: normal sclerae Neck Neck: trachea midline and supple Resp Effort & Inspection: no respiratory distress Auscultation: rales bilaterally at the base and wheezes expiratory wheezes Cardio Jugular venous pressure: no JVD Rate: tachycardic Rhythm: regular rhythm GI Palpation: soft, not firm, no guarding, no masses, not rigid and nontender Skin General skin exam: no rashes or lesions noted Neuro General: alert, awake, oriented x3 and tone normal Extrem General: edema Laterality: bilateral (1+ up shins) Course <Joseph Salter MD - Last Filed: 01/27/19 12:49> Vital Signs Temperature 37.1 C 01/26/19 16:35 Pulse 146 H 01/26/19 16:35 Respiratory Rate 26 H 01/26/19 16:35 Blood Pressure 164/93 H 01/26/19 16:35 Pulse Oximetry 94 L 01/26/19 16:35 Temperature 37.1 C 01/26/19 16:35 Temperature Source Temporal Artery Scan 01/26/19 16:35 Pulse 146 H 01/26/19 16:35 Respiratory Rate 26 H 01/26/19 16:35 Respiratory Effort Labored 01/26/19 16:38 Blood Pressure 164/93 H 01/26/19 16:35 Blood Pressure Position Supine 01/26/19 16:35 Pulse Oximetry 94 L 01/26/19 16:35 Oxygen Delivery Method Room Air 01/26/19 16:35 Oxygen Flow Rate 0 01/26/19 16:35 Pain Level 0 01/26/19 16:35 Sign Out <Joseph Salter MD - Last Filed: 01/27/19 12:49> Sign Out Data: Sign Out Comment: Care signed out to Dr. Gutierrez. Plan to follow-up on delta troponin and monitor until transfer to [facility]. Still waiting on bed confirmation. Last updated by Joseph Salter MD at 01/26/19 20:37
[2019-01-26] MEDS: methylPREDNISolone SUCC 125 MG VIAL IVP (16:55)
[2019-01-26] MEDS: Normal Saline Flush 10 ML SYR IVP (16:56)
--- NOTE | 2019-01-26 16:56 | NUR.NOTE ---
iv placed pt placed on manager cardiac ekg obtained medicated as per mdo provided with mult breathing treatment via areoneb by respiratory xray called for stat bedside cxr Nursing Note:
[2019-01-26] MEDS: Albuterol/Ipratropium 3 ML UPD VIAL UPD (16:57)
[2019-01-26] MEDS: Albuterol/Ipratropium 3 ML UPD VIAL (16:58)
[2019-01-26 16:59] LABS: Abs Immature Grans 0.05 k/cumm (0.0-0.09); Absolute Basophil Count 0.01 k/cumm (0.0-0.2); Absolute Eosinophil Count 0.01 k/cumm (0.0-0.7); Absolute Lymphocyte Count 1.65 k/cumm (1.2-3.4); Absolute Monocyte Count 0.83 k/cumm (0.11-0.7); Absolute Neutrophil Count 11.95 k/cumm (1.2-6.7); Basophils % 0.1; Eosinophils % 0.1; HCT 42.7 % (40.0-50.0); HGB 14.3 g/dL (13.5-17.5); Immature Grans % 0.3; Lymphocytes % 11.4; Mean Corp. HGB Concentration 33.5 g/dL (32.0-36.0); Mean Corpuscular Hemoglobin 29.2 pg (27.0-33.0); Mean Corpuscular Volume 87.3 fL (80-95); Mean Platelet Volume 11.6 fL (8.0-11.0); Monocytes % 5.7; Neutrophils % 82.4; Platelet Count 259 x1000/uL (130-400); RBC 4.89 m/cumm (4.50-6.00); RBC Distribution Width 13.7 % (11.8-14.1)
--- NOTE | 2019-01-26 17:00 | ED.GENADUL_ITS ---
Discharge Plan Disposition Patient Disposition: [facility] Condition: Stable Discharge Details Chief Complaint: SOB Clinical Impression: Non-ST elevation [place] (NSTEMI), COPD (chronic obstructive pulmonary disease), CHF (congestive heart failure) Primary Care Provider: [facility] ED Provider: Petr Gutierrez [place] Meds and New Rx's Prescriptions: No Action amlodipine 10 mg Tablet 10 mg PO DAILY RF: 0 metformin 1,000 mg Tablet 1,000 mg PO DAILY RF: 0 allopurinol 300 mg Tablet 300 mg PO DAILY RF: 0 albuterol sulfate 90 mcg/actuation Hfa Aerosol Inhaler 2 puff INHALATION Q6H PRNRF: 0 Spiriva with HandiHaler 18 mcg Capsule, W/Inhalation Device 1 cap INHALATION DAILY RF: 0 Eliquis 5 mg Tablet 10 mg PO BID Qty: 70 RF: 0 tamsulosin 0.4 mg Capsule 0.4 mg PO DAILY Qty: 30 RF: 0 omeprazole 40 mg capsule,delayed release(DR/EC) 40 mg PO DAILY Qty: 30 RF: 0 atorvastatin 10 mg Tablet 5 mg PO DAILY RF: 0 isosorbide mononitrate 30 mg Tablet Extended Release 24 Hr 30 mg PO QAM RF: 0 hydrochlorothiazide 25 mg Tablet 25 mg PO DAILY RF: 0 losartan 100 mg Tablet 100 mg PO DAILY RF: 0 metoprolol tartrate 25 mg Tablet 12.5 mg PO BID RF: 0 budesonide-formoterol 160-4.5 mcg/actuation Hfa Aerosol Inhaler 2 puff INHALATION BID RF: 0 Discharge Data Discharge Date/Time-TO BE ENTERED AT DEPARTURE: 01/26/19 22:29 Medical Decision Making <Joseph Salter MD - Last Filed: 01/27/19 12:49> 17:00 --73-year-old male with multiple medical problems including history of lung cancer status post lobectomy, DVT, now on Eliquis, CHF, COPD, here with worsening shortness of breath over the past 14 hours. Patient with rales and wheeze on exam. Saturating low 90s. Hypertensive and tachycardic. Consider ACS. ECG reviewed and interpreted by me: Sinus tachycardia 136 bpm, normal axis, nonspecific mild ST depression noted laterally. Concern for acute CHF exacerbation. Will check BNP. Lasix 20mg IV. Concern for acute COPD exacerbation: Plan to give Solu-Medrol and DuoNeb treatment. --Labs reviewed and elevated troponin. Elevated BNP. Normal creatinine. Concern for an STEMI and acute CHF exacerbation. Consider PE. Patient is anticoagulated so lower risk. Plan to obtain CT of the chest if patient can tolerate. 17:30 --I called [facility] transfer [place] to request emergent transfer. Awaiting callback. ECG sent for the review. Patient got up to urinate and had decline in status. Increased work of breathing. Tachycardic. Hypertensive. Plan to initiate nitroglycerin sublingual and infusion. Plan to also start BiPAP. Patient cannot tolerate CT imaging at this time. 18:05 -- Reviewed echo from 06/26: Summary: 1. Left ventricle: The cavity size was normal. Systolic function was normal. The estimated ejection fraction was 55-60%. Mild hypokinesis of the basalinferolateral myocardium. Diastolic parameters were normal for age. There was no evidence of elevated ventricular filling pressure by Doppler parameters. 2. Mitral valve: There was mild regurgitation. 3. Right ventricle: The cavity size was normal. Wall thickness was normal. Systolic function was normal. 4. Atrial septum: No defect or patent foramen ovale was identified. 5. Pulmonary arteries: Systolic pressure could not be accurately estimated. 6. Inferior vena cava: The vessel was patent and normal in size. The respirophasic diameter changes were in the normal range (greater than or equal to 50%), consistent with normal central venous pressure. Spoke with Dr. Carrasquillo (hospitalist at [facility]) able to accept patient for SCU level bed. Awaiting bed confirmation. --Chest x-ray reviewed and interpreted by radiology: Minimal new atelectasis versus consolidation in the right lung base. Lactic acid 2.9. I will send blood cultures. I will give doxycycline 100 mg IV to cover for possible infectious process. Patient was reassessed and notes he feels much better on nitroglycerin drip at 15mcg/min and on BiPAP. BP improved. Still tachycardic. Still awaiting bed availability. <Petr Gutierrez MD - Last Filed: 01/26/19 22:45> Patient signed out to me pending transfer to [facility]. He has been stable and is off BiPAP. He remains tachycardic 115-120 range. With some exertion he jumps up higher. It is sinus on the monitor. He has been this way since arrival. He states he is not having any pain feels much better than when he presented here. He had been using nebulized breathing treatments all day long. His lungs still have some wheezing present. He also has crackles. Second troponin did go up some, now at 1.75. We will continue him on nitroglycerin drip. Would not beta-kirby. Have discussed with paramedics doing transfer. Continue management for CHF and non-STEMI at this point. He is stable for transport to [facility] for further management. Lab Data Lab results reviewed: Yes I reviewed the patient's lab results. HPI <Joseph Salter MD - Last Filed: 01/27/19 12:49> General Mode of arrival: ambulatory . Date/Time Provider Initiated Documentation: 01/26/19 16:38 . Limitations to Documentation: no limitations . Information obtained by: patient . HPI Narrative: 73-year-old male with multiple medical problems including history of lung ca status post right lobectomy, COPD, CHF, diabetes, hypertension, DVT, on Eliquis, here with chief complaint of shortness of breath. Patient notes that over the past 14 hours she has had persistent and worsening shortness of breath. Symptoms are worse with exertion. He has no associated chest pain. Patient notes chronic unchanged lower extremity edema. No calf pain. Patient has been using frequent albuterol nebs at home today without relief. He also notes associated cough. Denies fever. Related Data Home Medications Medication Instructions Recorded Confirmed Spiriva with HandiHaler 1 cap INHALATION DAILY 06/22/18 01/26/19 albuterol sulfate 2 puff INHALATION Q6H PRN 06/22/18 01/26/19 allopurinol 300 mg PO DAILY 06/22/18 01/26/19 amlodipine 10 mg PO DAILY 06/22/18 01/26/19 metformin 1,000 mg PO DAILY 06/22/18 01/26/19 apixaban [Eliquis] 10 mg PO BID #70 tab 06/27/18 01/26/19 omeprazole 40 mg PO DAILY #30 cap 06/27/18 01/26/19 tamsulosin 0.4 mg PO DAILY #30 cap 06/27/18 01/26/19 atorvastatin 5 mg PO DAILY 01/26/19 01/26/19 budesonide-formoterol 2 puff INHALATION BID 01/26/19 01/26/19 hydrochlorothiazide 25 mg PO DAILY 01/26/19 01/26/19 isosorbide mononitrate 30 mg PO QAM 01/26/19 01/26/19 losartan 100 mg PO DAILY 01/26/19 01/26/19 metoprolol tartrate 12.5 mg PO BID 01/26/19 01/26/19 Previous Rx's Medication Instructions Recorded apixaban [Eliquis] 10 mg PO BID #70 tab 06/27/18 omeprazole 40 mg PO DAILY #30 cap 06/27/18 tamsulosin 0.4 mg PO DAILY #30 cap 06/27/18 Allergies Allergy/AdvReac Type Severity Reaction Status Date / Time No Known Allergies Allergy Unverified 06/22/18 22:14 General Stated Complaint: SOB JEANE: 2 Review of Systems <Joseph Salter MD - Last Filed: 01/27/19 12:49> Review of Systems All systems reviewed & are unremarkable except as noted in HPI and below Constitutional Denies fever(s) Cardiovascular Reports dyspnea Respiratory Reports as per HPI and Reports dyspnea PFSH <Joseph Salter MD - Last Filed: 01/27/19 12:49> Medical History DVT (deep venous thrombosis) (Acute) COPD exacerbation (Acute) Type 2 diabetes mellitus (Chronic) Essential hypertension (Chronic) COPD (chronic obstructive pulmonary disease) (Chronic) Lung cancer (Chronic) Surgical History S/P lobectomy of lung (Resolved) Status post ORIF of fracture of ankle (Resolved) Social History Smoking/Tobacco Use Status: Current every day Tobacco Type: e-cigarettes Alcohol Intake: current Alcohol Intake frequency: a few times a month Alcohol type: beer Drug use: Never Substance use type: does not use Do you feel safe at home: Yes Do you feel safe in your relationship?: Yes Exam <Joseph Salter MD - Last Filed: 01/27/19 12:49> Const General: cooperative and no acute distress HENMT Head: normocephalic and atraumatic Mouth: moist mucous membranes Eyes Conjunctivae: normal conjunctivae Sclera: normal sclerae Neck Neck: trachea midline and supple Resp Effort & Inspection: no respiratory distress Auscultation: rales bilaterally at the base and wheezes expiratory wheezes Cardio Jugular venous pressure: no JVD Rate: tachycardic Rhythm: regular rhythm GI Palpation: soft, not firm, no guarding, no masses, not rigid and nontender Skin General skin exam: no rashes or lesions noted Neuro General: alert, awake, oriented x3 and tone normal Extrem General: edema Laterality: bilateral (1+ up shins) Course <Joseph Salter MD - Last Filed: 01/27/19 12:49> Vital Signs Temperature 37.1 C 01/26/19 16:35 Pulse 146 H 01/26/19 16:35 Respiratory Rate 26 H 01/26/19 16:35 Blood Pressure 164/93 H 01/26/19 16:35 Pulse Oximetry 94 L 01/26/19 16:35 Temperature 37.1 C 01/26/19 16:35 Temperature Source Temporal Artery Scan 01/26/19 16:35 Pulse 146 H 01/26/19 16:35 Respiratory Rate 26 H 01/26/19 16:35 Respiratory Effort Labored 01/26/19 16:38 Blood Pressure 164/93 H 01/26/19 16:35 Blood Pressure Position Supine 01/26/19 16:35 Pulse Oximetry 94 L 01/26/19 16:35 Oxygen Delivery Method Room Air 01/26/19 16:35 Oxygen Flow Rate 0 01/26/19 16:35 Pain Level 0 01/26/19 16:35 Sign Out <Joseph Salter MD - Last Filed: 01/27/19 12:49> Sign Out Data: Sign Out Comment: Care signed out to Dr. Gutierrez. Plan to follow-up on delta troponin and monitor until transfer to [facility]. Still waiting on bed confirmation. Last updated by Joseph Salter MD at 01/26/19 20:37
[2019-01-26] MEDS: Furosemide 20 MG/2 ML VIAL IVP (17:06)
[2019-01-26 17:22] LABS: ALT 32 U/L (12-78); AST 25 U/L (15-37); Albumin 4.3 g/dL (3.4-5.0); Alkaline Phosphatase 149 U/L (46-116); Anion Gap 13.3 mmol/L (3-11); BUN 11 mg/dL (7-18); Bilirubin, Total 0.7 mg/dL (0.2-1.0); CO2 26.7 mmol/L (21.0-32.0); CREATININE 1.11 mg/dL (0.70-1.30); Calcium 9.9 mg/dL (8.5-10.1); Chloride 99 mmol/L (98-107); Glucose 243 mg/dL (70-100); Magnesium 1.8 mg/dL (1.8-2.4); NT-proBNP 1498 pg/mL; Potassium 4.4 mmol/L (3.5-5.1); Sodium 139 mmol/L (136-145); Total Protein 8.6 g/dL (6.4-8.2)
--- NOTE | 2019-01-26 17:35 | DI.VRAD_ITS ---
EXAM: XR Chest, 1 View EXAM DATE/TIME: 01/26/2019 4:40 PM CLINICAL HISTORY: 73 years old, male; Other: Shortness of breath TECHNIQUE: Imaging protocol: XR of the chest, 1 view. COMPARISON: SC XR CHEST 2V PA LATERAL 06/26/2018 8:18 AM FINDINGS: Lungs: Persistent blunting of the right costophrenic angle with suspected scarring also in the right lung base. Findings may also be indicative of minimal new atelectasis versus consolidation in the right lung base with increased density. Pleural space: Unremarkable. No pleural effusion. No pneumothorax. Heart/Mediastinum: Unremarkable. No cardiomegaly. Bones/joints: Unremarkable. IMPRESSION: Minimal new atelectasis versus consolidation in the right lung base. Dictated and Authenticated by: Ousmane Garrison MD. Ordering:EILEEN Obrien MD
--- NOTE | 2019-01-26 17:52 | NUR.NOTE ---
iv nitro began as per mdo Nursing Note:
--- NOTE | 2019-01-26 18:08 | NUR.NOTE ---
nitro drip infusing resp at bedside applying bipap to pt Nursing Note:
--- NOTE | 2019-01-26 18:17 | NUR.NOTE ---
lab at bedside drawing serum lactate Nursing Note:
--- NOTE | 2019-01-26 18:40 | NUR.NOTE ---
lab at bedside redrawing pt Nursing Note:
[2019-01-26 18:45] LABS: Lactate-non-spesis 2.9 mmol/l (0.6-1.4)
--- NOTE | 2019-01-26 19:00 | NUR.NOTE ---
hold on cta as of now as per md Nursing Note:
[2019-01-26] MEDS: DOXYCYCLINE 100 MG in Normal Saline 100 ML IVPB (20:37)
--- NOTE | 2019-01-26 20:39 | NUR.NOTE ---
pt medicated as per mdo iv antibiotics infusing pt resting in bed on potline monitor bipap removed by resp pt resp even unlabored no acute distress noted at this time none stated by pt Nursing Note:
[2019-01-26 21:04] LABS: Troponin I 1.75 ng/mL (0.00-0.06)
--- NOTE | 2019-01-26 22:29 | NUR.NOTE ---
bedside sbar to icu crew nitro drip cont to infuse pt [id number] on dc no distress noted none stated denies pain Nursing Note:
== END 2019-01-26 22:29 | disposition short-term general hospital (02) ==
PROVIDERS: Nurse Practitioner Family; Student in an Organized Health Care Education/Training Program; Emergency Provider Emergency Medicine
DX: I21.4 Non-ST elevation (NSTEMI) myocardial infarction (principal); J44.9 Chronic obstructive pulmonary disease, unspecified; I50.9 Heart failure, unspecified
CPT/HCPCS: 36415; 80053; 87040; 93005; 96365; 96366; 96368; 96375; 96376; 99291; 99292; 71045; 83605; 83735; 83880; 84484; 85025; 93010; J1941; J2930; J3490; J7620